=== PATIENT | female | born 1990 | race Caucasian/White ===

== ENCOUNTER 2017-12-11 16:11 | Outpatient (RCR) | payer MEDICAID, SELFPAY | END 2017-12-11 19:00 | disposition home or self-care (01) | LOC: PT 16:11 | DX: R69 Illness, unspecified (principal) ==

== ENCOUNTER 2018-02-16 16:30 | Outpatient (RCR) | payer MEDICAID, SELFPAY ==
--- NOTE | 2018-01-16 16:38 | HP.PTEVAL_ITS ---
Patient's Visit Information JESSEE QUIGLEY is a 27 year old F referred to Physical Therapy by Robert JIMENEZ with a diagnosis of Fibromyalgia. Date of Evaluation: 01/16/18 Physical Therapist: Laya Knott - Visit Plan Frequency: 2x /Week Duration: 4 Weeks Plan: Pain managment, manual therapy and scapular s/s. - Subjective Subjective: Patient reports that she has pain- found out recently that she has Fibro. She was coming to PT before because of the pain in her low back, neck and shoulders. pain in the low back sometimes but mostly in the neck and bilateral shoulders and down the right arm. She has had pain for years with insidious onset. She feels the pain is progressively getting worse. Did get better with PT but she stopped and is now worse. Pain is located in the shoulders and radiates down to the fingers. No N/T in the fingers. Patient has FREEMAN with blurred vision. Gets FREEMAN 2-3x a week- Come up over the top of her head. Describes the pain as dull and achy 'soreness. Worst: [employer]: doing a lot with her arms, after working a long shift, sleeping. Eases: massage Best : 12/23 Sleep: hard to sleep- side/stomach sleeper. Only has 15 chiro visits so she has to wait until February for them to start again- Sees [place]. 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 Lifting up to #25 lbs- not a ton of weight just constant- works 40 hours a week. PMHx: Fibromyalgia, depression, anxiety. Meds: Lexipro, BC Patch. No images recently. - Objective Posture: FH, RS, Increased kyphosis- guarding of the cervical spine and UE's. Gait: no deviation of LE but poor trunk rotation. Palpation: tender throughout upper trap, levator, medial border of the scapula, scalenes- with palpable trigger points. ROM: cervical/shoulder/elbow: WNL. Strength: Scap: fair minus with winging greater on the right than the left. Shoulder: 5/5 throughout, cervical: 5/5 throughout Elbow: 5/5 throughout. Sensation/Reflex: WNL. Special Test: distraction: no change compression: no change. - Goals Goal 1:: Patient will be I with HEP and progression Goal Time Frame: 4-6 Weeks Goal 2:: Patient will maintain proper posture t/o tx session to demo increased scap s/s. Goal Time Frame: 4-6 Weeks Goal 3:: Patient will report 5/10 pain at the worst for 1 week Goal Time Frame: 4-6 Weeks - Rehabilitation Potential Physical Therapy Diagnosis: Patient presents with hypomobility-she has increased pain and decreased scap s/s leading to poor posture. Rehabilitation Potential: Fair - Anticipated Interventions Patient/Client Instruction: Educate patient on: Benefits of Fitness Program For the Purpose of:: To improve performance and independence with ADL's Therapeutic Exercise to Include: Strength training, Endurance training, Body mechanics, Postural training, Scapular Strength/Stabilization For the Purpose of:: To improve muscle performance and motor function Manual Therapy Techniques to Include: Mobilization, Soft tissue mobilization For the Purpose of:: To decrease pain IF ES: Yes Cryotherapy (ice pack, ice massage): Yes Thermo therapy (hot pack): Yes Ultrasound (thermal/non thermal): Yes For the Purpose of:: To decrease pain Thank you for the opportunity to evaluate your patient. For Medicare and Medicare HMO plans, please review the plan of care and approve it. It will need to be FAXED BACK to us at [phone] for Medicare purposes. Please let me know if there are questions or concerns regarding this plan of care. Physician Signature: Date:
--- NOTE | 2018-04-04 09:53 | HP.PT.NRP ---
HP - Discharge Summary (1) - Patient Information JESSEE QUIGLEY was seen in my office for initial evaluation on 01/16/18. The following Plan of Care was established for this patient: Initial Frequency: 2x /Week Initial Duration: 4 Weeks - Anticipated Interventions Patient/Client Instruction: Educate patient on: Benefits of Fitness Program For the Purpose of:: To improve performance and independence with ADL's Therapeutic Exercise to Include: Strength training, Endurance training, Body mechanics, Postural training, Scapular Strength/Stabilization For the Purpose of:: To improve muscle performance and motor function Manual Therapy Techniques to Include: Mobilization, Soft tissue mobilization For the Purpose of:: To decrease pain IF ES: Yes Cryotherapy (ice pack, ice massage): Yes Thermo therapy (hot pack): Yes Ultrasound (thermal/non thermal): Yes For the Purpose of:: To decrease pain This patient was last seen in our office . Pertinent comments regarding their Physical therapy will appear below: Patient has not attended physical therapy in over 30 days and is appropriate for d/c- return to MD as needed. At this point I will be discontinuing this patient from physical therapy. I would be happy to see this patient again in the future if found appropriate by the physician. Thank you! Laya Knott
== END 2018-02-16 19:00 | disposition home or self-care (01) ==
LOC: PT 16:30
PROVIDERS: Family Provider Nurse Practitioner Family; PCP Nurse Practitioner Family; Visit Provider Nurse Practitioner Family
DX: M79.7 Fibromyalgia (principal)
CPT/HCPCS: 97035; 97110; 97113; 97140; 97161; 97530

== ENCOUNTER → 2018-11-16 16:16 | Outpatient (CLI) | payer MEDICAID, SELFPAY ==
[2018-10-22 16:20] VITALS: BMI 22.6
[2018-11-21 12:17] LABS: HPV Reflexed? NOT INDICATED
== END ==
PROVIDERS: Visit Provider Obstetrics & Gynecology
DX: Z12.4 Encounter for screening for malignant neoplasm of cervix (principal)
CPT/HCPCS: 87624; 88175; G0145

== ENCOUNTER 2019-06-01 20:32 | Emergency (ER) | payer MEDICAID, SELFPAY ==
[2019-05-09 16:39] VITALS: BMI 22.6
[2019-06-01 20:33] VITALS: BP 134/99; PULSE 68; RESP 16; TEMP 36.8; O2SAT 98; BMI 24.3
[2019-06-01] MEDS: Ondansetron 4 MG/2 ML Vial IV (21:33)
[2019-06-01 21:43] LABS: Bacteria 0 SEEN /hpf (None Seen); Red Blood Cells-Urine 0 SEEN /hpf (0-5)
[2019-06-01 21:44] LABS: Mucous, Urine 0 SEEN /hpf (<or=2+)
[2019-06-01 21:46] LABS: Absolute Neutrophil Count 3.9 X10^3/uL (2.0-7.7); Basophil# 0.03 X10^3/uL; Basophil% 0.4 % (0-1); Color, Urine Yellow (Yellow); Eosinophil# 0.05 X10^3/uL; Eosinophils% 0.7 % (0-5); Glucose, Dipstick Normal (Normal); Hematocrit 39.8 % (37-47); Hemoglobin 13.1 g/dL (12.0-15.0); Ketone-Dipstick Negative (Negative); Leukocyte Esterase-Dipstick 25 /ul (Negative); Lymphocyte % 39.9 % (19-41); Mean Corp Hgb Conc 32.9 g/dL (32-36); Mean Corpuscular Hgb 29.8 pg (27.0-32.0); Mean Corpuscular Volume 90.5 fL (81-99); Mean Platelet Vol. 9.8 fl (6.2-12.0); Monocyte# 0.55 X10^3/uL; Monocyte% 7.3 % (0-10); NRBC Flagged by Analyzer 0 % (0-5); Neutrophil # 3.86 X10^3/uL (2.7-7.7); Neutrophil % 51.3 % (47-70); Nitrite-Dipstick Negative (Negative); Occult Blood-Urine Negative /ul (Negative); Platelet Count 195 K/mm3 (150-450); Protein-Dipstick Negative (Negative); RBC Distribution Width CV 12.3 % (11.6-14.6); RBC Distribution Width SD 40.8 fl (35.1-43.9); Urine Bilirubin Dipstick Negative (Negative); Urine Clarity Clear (Clear); Urine Urobilinogen Normal (Normal); White Blood Count 7.5 K/mm3 (4.4-11.0)
[2019-06-01 21:56] LABS: Squamous Epithelial Cells - UA 10-25 SEEN /hpf (5-10); White Blood Cells 0-5 SEEN /hpf (0-5)
[2019-06-01 21:59] LABS: Anion Gap 5 (5-15); BUN 9 mg/dL (7-18); BUN/Creat Ratio 9.9 RATIO (10-20); Calcium,Total 8.4 mg/dL (8.5-10.1); Chloride 107 mmol/L (98-107); Creatinine, Serum 0.91 mg/dL (0.55-1.02); EST Glomerular Filtration Rate 79 mL/min (>60); Est Glom Filt Rate - Afr Amer 96 mL/min (>60); Glucose 98 mg/dL (74-106); Potassium 4.2 mmol/L (3.5-5.1); Sodium Level 141 mmol/L (136-145)
[2019-06-01 22:18] LABS: Internal QC Validated? YES +Cl - CLEAR BKGD; Pregnancy, Serum, hCG Quali. NEGATIVE Negative
--- NOTE | 2019-06-01 22:59 | ED.VISSUMM ---
- ER Visit Summary Date of Service: 06/01/19 Chief Complaint: Nausea History of Present Illness: The patient is a 28 F history of depression and anxiety. Patient states for the last 3-4 weekends she gets nauseated on the weekend only. Has had intermittent vomiting. No diarrhea. No fever. No dysuria. Last menstrual period was around 04/19/2019. Denies any vaginal bleeding or discharge. No abdominal pain. Physical Examination: Well-appearing young female no acute distress. Vital signs are stable and afebrile. HEENT exam unremarkable atraumatic. Pupils round react light. Neck nontender no lymphadenopathy. Lungs clear to auscultation bilaterally. Heart regular rhythm no murmur. Abdomen is soft and nontender normal bowel sounds no peritoneal signs. No right upper quadrant tenderness. Patient moving all 4 extremities. Neurovascular intact. Calves nontender without edema. Back nontender. Neurologically awake alert with no focal motor deficits. Skin normal. No rashes. Test Results: CBC showed white count 7. Hemoglobin 13. No bands. Electrolytes normal. Normal creatinine gap. UA normal. Serum test negative. Emergency Department Course and Treatment: Patient treated with IV Zofran and is showing improvement on repeat exam at 20 2:57 PM. Repeat exam otherwise unchanged. Abdomen is nontender. Treatment Plan: Zofran as needed for nausea. Fluids and rest. Follow-up. Disposition: Discharge Impression: Nausea uncertain etiology This note was generated with [employer] dictation software. It may contain incorrect words, spelling, and punctuation that were not noted in review of the chart prior to signing ED Disposition - Plan for ED Patient: Referrals: Robert Keys MD [Primary Care Provider] -
--- NOTE | 2019-06-01 23:01 | ED.DEP ---
ED Disposition - Plan for ED Patient: Disposition: Home or Assisted Living Instructions: VOMITING (8y-Adult) Prescriptions: Ondansetron [Zofran Odt] 4 mg PO Q8H PRN PRN #10 tab PRN Reason: Nausea Prescription Printed Referrals: Robert Keys MD [Primary Care Provider] - 3-5 Days if not improving Additional Instructions: Plenty of fluids and rest. Zofran as needed for nausea. Follow-up with your doctor if not improving.
[2019-06-01 23:03] VITALS: BP 113/76; PULSE 59; RESP 15
[2019-06-01] MEDS: Ondansetron ODT 4 MG Tablet 8 MG PO (23:07)
== END 2019-06-01 23:11 | disposition home or self-care (01) ==
PROVIDERS: Emergency Provider Emergency Medicine
DX: R11.0 Nausea (principal); F32.9 Major depressive disorder, single episode, unspecified; F41.9 Anxiety disorder, unspecified; Z79.899 Other long term (current) drug therapy
CPT/HCPCS: 80048; 81001; 84703; 85025; 96374; 99283; A4216; J2405

== ENCOUNTER → 2019-11-20 16:34 | Outpatient (CLI) | payer MEDICAID, SELFPAY ==
[2019-11-11 16:29] VITALS: BMI 24.2
--- NOTE | 2019-11-20 16:47 | RAD_ITS ---
STUDY: X-RAY - CERVICAL SPINE REASON FOR EXAM: Female, 29 years old. patient complains of neck pain TECHNIQUE: 7 view(s) of the cervical spine were obtained. COMPARISON: None FINDINGS: Normal anterior atlantoaxial articulation. Normal odontoid process. There is straightening of the normal cervical lordosis. No subluxation on flexion, extension or neutral views. Normal vertebral bodies and endplates. Normal disc space heights. Normal visualized intervertebral neuroforamina. The soft tissue structures are unremarkable. RAD/Cerv Spine Obl/Flex/Ext Comp IMPRESSION: No degenerative disc space disease or foraminal narrowing. Straightening of the normal cervical lordosis may be positional artifact or related to muscular spasm. Electronically Signed: Zhen Oreilly MD (Bro[place]) at 13:02 EST , Service support ,
== END ==
DX: M54.2 Cervicalgia (principal)
CPT/HCPCS: 72052

== ENCOUNTER → 2019-12-20 16:23 | Outpatient (CLI) | payer MEDICAID, SELFPAY ==
[2019-11-11 16:29] VITALS: BMI 24.2
--- NOTE | 2019-12-20 16:30 | RAD_ITS ---
STUDY: X-RAY - LUMBAR SPINE REASON FOR EXAM: Female, 29 years old. Pain across lower back down both legs with numbness and tingling for about 3-4 months now. No known injury. TECHNIQUE: 5 view(s) of the lumbar spine were obtained. COMPARISON: March 02, 2017 FINDINGS: Normal lumbar lordosis. There is no substantial scoliosis. There is a normal alignment of the vertebrae. Normal vertebral bodies and endplates. Normal disc space heights. The soft tissue structures are unremarkable. RAD/L/S Spine Min 4 Views IMPRESSION: Normal x-ray examination of the lumbar spine. Electronically Signed: Caity Chris MD at 8:03 EST Tel , Service support ,
== END ==
DX: M54.40 Lumbago with sciatica, unspecified side (principal)
CPT/HCPCS: 72110

== ENCOUNTER → 2020-01-24 10:26 | Outpatient (CLI) | payer MEDICAID, SELFPAY ==
[2019-11-11 16:29] VITALS: BMI 24.2
--- NOTE | 2020-01-24 10:30 | NM_ITS ---
CLINICAL: Female, 29 years old. ruq pain -- gallstones with obstruction of gallbladder -- ultrasound done elsewhere showed stones -- pain radiates to the back NUCLEAR BILIARY SCAN TECHNIQUE: Following the intravenous administration of 5.4 mCi of Tc Mebrofenin, hepatobiliary images was performed. COMPARISON STUDIES : NM - None. CR - Not available for review at this time. CT - Not available for review at this time. MR - Not available for review at this time. US - Not available for review at this time. FINDINGS: Relatively prompt and homogeneous radiopharmaceutical concentration is noted by a normal sized liver. There are no parenchymal defects noted.. Gallbladder activity is identified at 45 minutes post radiopharmaceutical administration. Small bowel activity is identified at 30 minutes post radiopharmaceutical administration. Washout of the radiopharmaceutical by the hepatic parenchyma occurs in a normal fashion on qualitative inspection. NM/Hepatobilliary Imaging IMPRESSION: Normal 99m TC Mebrofenin hepatobiliary imaging survey. Electronically Signed: Rogelio Bowden MD at 13:00 EDT , Service support ,
== END ==
PROVIDERS: PCP Nurse Practitioner Family; Referring Provider Nurse Practitioner Family; Visit Provider Nurse Practitioner Family
DX: R10.11 Right upper quadrant pain (principal); K80.21 Calculus of gallbladder without cholecystitis with obstruction
CPT/HCPCS: 78226; A9537

== ENCOUNTER 2020-02-19 16:00 | Outpatient (RCR) | payer MEDICAID, SELFPAY ==
[2019-11-11 16:29] VITALS: BMI 24.2
--- NOTE | 2020-01-20 10:49 | HP.PTEVAL_ITS ---
Patient's Visit Information JESSEE QUIGLEY is a 29 year old F referred to Physical Therapy by MARK Ocampo with a diagnosis of Lumbago with sciatica. Date of Evaluation: 01/16/20 Physical Therapist: Calin Galicia DPT - Visit Plan Frequency: 2x /Week Duration: 4-6 Weeks Plan: Start with US/IFC to lumbar spine. Neutral spine core stability exercises withtout increase in symptoms. POstural education to maintain neutral spine with activities. - Subjective Subjective: Pt. is here today for her initial evaluation with diagnosis of lumbago with sciatica. Pt. reports having pain for 8+ months progressively getting worse without mech of injury. Pt. has been going to chiro with a couple of days relief, but not lasting. Pt. reports having pain in lumbar spine 4/10 constantly worse with prolonged sitting or standing. Pt. has pain that radiates down her legs to B feet, R worse then L. No N/T, no LE weakness. Pt. has had back pain in general previously, but not like this. 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 Pt. reports no recent changes in symptoms. Pt. is hopefyl to reduce symptoms to get back to all recreational and work activities without pain. - Pain Lumbar spine Pain Intensity (Out of 10): 4 Pain Intensity Range: 2, 8 RLE Pain Intensity (Out of 10): 4 Pain Intensity Range: 2, 8 LLE Pain Intensity (Out of 10): 2 Pain Intensity Range: 1, 6 - Objective POSTURE: Pt. has generally flexed posture, able to improve with VCIng. PALPATON: Pt. has pain with pal of B lumbar erector spine, B SI joints, No pain with palpation of BLEs. NEURO: normal throughout. ROM: LUMBAR SPINE: flexion min loss increase nW, extension min loss increase nW, sB nil loss NE Bilat, rotation nil loss NE bilat. Pt. has tright HS and hip flexors, but no pain. Normal hip ROM. MMT: 4+/5t throughout generally of BLEs, core- poor+. GAIT: Pt. has normal gait pattern, flexed posture, minimal postural sway. STAIRS: Pt. uses BHR without issues. - Special Tests L/S Slump test left side: Negative L/S Slump test right side: Negative L/S Left Straight Leg Raise: Negative L/S Right Straight Leg Raise: Negative L/S Instability PA Test: Negative L/S Prone Instability Test: Positive - Goals Goal 1:: Pt. to be I with HEP. Goal Time Frame: 4-6 Weeks Goal 2:: Pt. to have full lumbar ROM without increase in symptoms. Goal Time Frame: 4-6 Weeks Goal 3:: Pt. to complete all job activities without increase in symptoms. Goal Time Frame: 4-6 Weeks Goal 4:: Pt. to have increased core strength by 1/2 grade throughout. Goal Time Frame: 4-6 Weeks Goal 5:: Pt. to sleep throughout the night wihtout increase in symptoms. Goal Time Frame: 4-6 Weeks - Rehabilitation Potential Physical Therapy Diagnosis: Pt. has signs and symptoms consistent with lumbago with sciatica. Pt. did not have + testing for disc involvement, - slump and - SLR. Pt. also did not present with a directional preference this date. She does have reduced core stability and difficulty maintaining neutral spine against external resistance. Pt. does have fibromyalsia as a secondary dx. Pt. would benefit from PT to reduce symptoms and promote graded exercises. Rehabilitation Potential: Good - Anticipated Interventions Patient/Client Instruction: Educate patient on: Condition, Plan of Care, Risk Factors, Benefits of Fitness Program For the Purpose of:: To improve health and function, To foster healthy habits, To improve decision making, To facilitate caregiver knowledge, To improve self management, To prevent re-injury, To improve ability to perform tasks related to life management, To improve tolerance to ADL's Therapeutic Exercise to Include: Strength training, Power training, Body mechanics, Postural training, Flexibilty training, Passive ROM, Active ROM, Dynamic Lumbar Stabilization, Sarah Exercises For the Purpose of:: To decrease pain, To decrease swelling/inflammation, To increase ROM, To improve nutrient delivery to tissue, To increase oxygenation perfusion, To improve muscle performance and motor function, To decrease level of supervision to perform tasks, To improve ability of physical actions for home/community/work/leisure, To improve health of tissue, To decrease soft tissue restriction, To increase flexibility/ROM Manual Therapy Techniques to Include: Mobilization, Functional dry needling, Soft tissue mobilization For the Purpose of:: To decrease pain, To decrease swelling/inflammation, To increase ROM, To improve nutrient delivery to tissue, To increase oxygenation perfusion, To improve muscle performance and motor function, To improve health of tissue, To decrease soft tissue restriction TENS: Yes IF ES: Yes Ultrasound (thermal/non thermal): Yes For the Purpose of:: To decrease pain, To increase ROM, To improve nutrient delivery to tissue, To increase oxygenation perfusion, To improve muscle performance and motor function Thank you for the opportunity to evaluate your patient. For Medicare and Medicare HMO plans, please review the plan of care and approve it. It will need to be FAXED BACK to us at [phone] for Medicare purposes. For Medicare only, by signing this I certify the plan of care. Please let me know if there are questions or concerns regarding this plan of car e. Physician Signature: Date:
--- NOTE | 2020-02-20 07:55 | HP.PTDCSUM ---
It has been my pleasure to treat JESSEE QUIGLEY referred by MARK Ocampo, with the diagnosis of Lumbago with sciatica for a total of 10 visit(s). Discharge Date: 02/19/20 Please see the following information for a summary of their discharge status. Subjective: Pt. reports nothing is really helping the pain. She reports having some relief with extension one day, but everyother attempt with extension has caused increased symptoms. Pt. reprots pain in her upper back at times, low back constantly and lateral hips ~50% of the time. Pt. reports being HEP compliant. Lumbar spine Pain Intensity (Out of 10): 6 RLE Pain Intensity (Out of 10): 0 LLE Pain Intensity (Out of 10): 0 B hips Pain Intensity (Out of 10): 3 % Improvement: 20 Objective/Function: ROM: Lumbar spine: pt. had full ROM this date of her lumbar spine, but did have increased pain wtih flexion and with R SB and R rotation. Pt. has increased pain with prone lying and prone prop. MMT: Pt. has 5/5 strength of her BLEs, except hip flexion 4+/5, hip abd 4+/5, and hip ext 4+/5. Core strength is fair-. Pt. has difficulty with maintaining proper pelvic tilt against weight of LEs and worse against over pressure. GAIT: Pt tends to walk with anterior pelvic tilt positining. STAIRS: Pt. is able to complete without LOB or issues. pt. uses 1 HR to complete. Goal 1:: Pt. to be I with HEP. Goal Progress: Goal Met Goal 2:: Pt. to have full lumbar ROM without increase in symptoms. Goal Progress: Progressing Goal 3:: Pt. to complete all job activities without increase in symptoms. Goal Progress: Not Progressing Goal 4:: Pt. to have increased core strength by 1/2 grade throughout. Goal Progress: Progressing Goal 5:: Pt. to sleep throughout the night wihtout increase in symptoms. Goal Progress: Not Progressing Plan: Pt. to be DC to HEP and back to physician for further testing. Pt. had minimal gains with PT at this point in time. Discharge Comments: Pt. was seen for her low back pain, sciatica. We tried some directional preference with extension, but did not have consistent relief. She does have a hard time maintaining proper pelvic stability and especially against resistances. I have given her exercises to work on isometric core stability exercises at this point in time. She just has not responded like I would have expected. I will Dc her back to physician at this point in time. If there are questions or concerns regarding this patient's physical therapy, please feel free to call me at [phone]. Thank you for the referral of this patient. Sincerely, FERNANDO MoniqueT
== END 2020-02-19 19:00 | disposition home or self-care (01) ==
LOC: PT 16:00
PROVIDERS: Referring Provider Nurse Practitioner Family; Visit Provider Nurse Practitioner Family
DX: M54.40 Lumbago with sciatica, unspecified side (principal)
CPT/HCPCS: 97035; 97110; 97140; 97161; 97164

== ENCOUNTER → 2020-03-04 13:51 | Outpatient (CLI) | payer MEDICAID, SELFPAY ==
[2020-03-04 13:12] VITALS: BMI 24.2
[2020-03-04 15:00] LABS: AST(SGOT) 32 U/L (15-37); Alanine Aminotransfer ALT/SGPT 40 U/L (13-56); Albumin, Serum 3.9 g/dL (3.2-5.0); Alkaline Phosphatase 79 U/L (45-117); Bilirubin, Direct 0.12 mg/dL (0.00-0.30); Globulin 3.5 g/dL (2.2-4.2); Protein, Total 7.4 g/dL (6.4-8.2)
== END ==
PROVIDERS: PCP Nurse Practitioner Family; Referring Provider Surgery; Visit Provider Surgery
DX: K80.20 Calculus of gallbladder without cholecystitis without obstruction (principal)
CPT/HCPCS: 36415; 80076

== ENCOUNTER 2020-03-13 10:35 | Day surgery (SDC) | payer MEDICAID, SELFPAY ==
--- NOTE | 2020-03-04 01:57 | HP_ITS ---
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 Ashley Rivas MD) Smoking Status: Current every day smoker alcohol intake: never substance use type: does not use what type of physical activity do you participate in: none HPI HPI HPI: JESSEE QUIGLEY, is a 29 F who presents to the office today for HPI HPI Surgical H&P: Yes HPI: JESSEE QUIGLEY, is a 29 F who presents to the office today for cholelithiasis. Patient had an ultrasound report shows gallstones/sludge, gallbladder wall 2 mm, common bile duct 3 mm no pericholecystic fluid. Patient states she is had right upper quadrant pain for a few years however it is more often now about daily and also increase in severity occasionally. Patient notices that she can get it when he after she eats about 1 to 2 hours. Patient states she has had some issues with constipation recently she did have some bright red blood when she wiped after hard stool on Monday. She normally goes about every 3 days she has not think she has any hemorrhoids denies having a lot of fiber in her diet or drinking a lot of water. Patient also has been having some right lower quadrant pain/groin off and on does not believe it is associated with food it can be associated with movement will be sharp for about 10 minutes and she will rest and will improve over the next 10 to 15 minutes. Patient did have a pelvic ultrasound which report was some ovarian follicles otherwise negative. Exam Const General: cooperative, no acute distress, well developed Resp Effort & Inspection: normal respiratory effort Cardio Rate: regular rate GI Inspection: non-distended Palpation: soft, no guarding, nontender Other: No obvious inguinal hernia on the right. Neuro Cranial Nerves: CN's II-XI intact bilaterally Extrem General: no clubbing, cyanosis or edema Psych Affect: normal affect Assessment & Plan Problems 1. Cholelithiasis K80.20 Plan Will have patient get LFTs. Recommend avoiding any fatty or greasy foods until surgery Reviewed the anatomy with the patient and discussed the procedure: laparoscopic cholecystectomy with cholangiograms, possible open. Review risks including but not limited to bleeding, infection, hernia, bile leak, retained gallstones requiring another procedure ERCP- Endoscopic Retrograde Cholangiopancreatography, injury to another organ (bile ducts, common bile duct, small bowel, etc.) may require transfer to tertiary care facility and conversion to an open procedure. All questions were answered. Also plan to look in the lower abdomen during the procedure for any possible hernias none obvious on exam. Procedure: Elective We discussed the current risks associated with COVID-19. While it is understood that there is a community spread of COVID-19, the risk of violetta COVID-19 while at [facility] ([facility]) is very low; however, the risk cannot be completely mitigated because of the community spread of the disease. We discussed in detail the risk of exposure to and/or potential harm posed by the COVID-19 virus with having a surgery/procedure at this time versus the risk of delaying the surgery/procedure. It is not possible to know either the risk of delaying the surgery or procedure or chance of getting an infection with perfect accuracy, but a joint decision was made to proceed at this time with the scheduled surgery/procedure as indicated on the consent form. Patient was notified that we will need to comply with any screening or testing [facility] wishes to perform or that surgery may be delayed for any positive results. Ashley Rivas M.D. Pager: [phone] [facility] [address] [place] [address], [address] [place] [address] Office: [phone] Orders Orders: Liver Profile Today K80.20 Plan Detail Goals Decrease pain Increase ability to sit for prolonged periods Decrease FREEMAN's Barriers Repetitive work Follow Up We will schedule lap rebecca Coding Level of Care Code Off vis,new,level 3 Diagnoses Cholelithiasis K80.20 03/04/20 1357 <Electronically signed by Ashley Pimentel am, MD> Date _ Ashley Rivas MD I have examined the patient the following changes are noted: Patient stated LFTs were within normal range, patient still been having some right upper quadrant and right lower quadrant pain they not occur at the same time.
[2020-03-04 13:12] VITALS: BMI 24.2
[2020-03-13] VITALS (12 sets, daily range): BP systolic 100–123; BP diastolic 55–75; PULSE 56–73; RESP 16–18; TEMP 36.3–37.1; O2SAT 92–100; BMI 26.2
[2020-03-13 11:07] LABS: Internal QC Validated? YES +Cl - CLEAR BKGD
[2020-03-13 11:08] LABS: Pregnancy, Urine Negative Negative
[2020-03-13] MEDS: Lactated Ringers 1,000 ML 100 ML IV ×2 (11:14→14:25)
--- NOTE | 2020-03-13 12:05 | RAD_ITS ---
STUDY: INTRAOPERATIVE CHOLANGIOGRAM. REASON FOR EXAM: Female, 29 years old. PAIN. 4.5 SEC. FL, 1 IMAGE FLUOROSCOPY TIME (if supplied): ( 4.5 seconds ) minutes/seconds TECHNIQUE: An intraoperative Intra Cholangiogram was performed by the surgeon. A single image was submitted for interpretation. COMPARISON: None. FINDINGS: The visualized intrahepatic biliary ducts are unremarkable. The common bile duct is not dilated. No intraluminal filling defect is seen. There is free flow of contrast into the duodenum. RAD/Cholangiogram/ O R,Initial IMPRESSION: Unremarkable Intra- operative cholangiogram. Electronically Signed: Nando Barnett, at 14:03 EDT , Service support ,
--- NOTE | 2020-03-13 12:05 | GALL_PTH ---
PATIENT: JESSEE QUIGLEY LOC: [facility] – [place] U#:[id number] AGE/SX: 29/F ROOM: RE03/13/[address]: Dr. Ashley Rivas MD : 1990 BED: DIS: 03/13/2020 SPEC #: [id number] RECD: 03/16/20 10:03 STATUS: MADELIN ERROL #: [id number] DELVIN: 03/13/20 12:[address]: Ashley Rivas DEPT: SURGICAL PATHOLOGY RECD BY: Shane Norton ENTERED: 03/16/20 11:17 SP TYPE: ELY BOWSER DR: Robert Wong, ACCESS REPRESENTATIVE-Glynn Tissues: Gallbladder, NOS Procedures: Surgery Specimen Level III HEADER OPERATION: Laparoscopic cholecystectomy with IOC PRE-OP DIAGNOSIS: Cholelithiasis TISSUE SUBMITTED: Gallbladder MICROSCOPIC DIAGNOSIS Gallbladder, cholecystectomy: Mild chronic cholecystitis and cholelithiasis. SJ:severo 6/2/20 MICROSCOPIC DESCRIPTION Slides are reviewed. GROSS DESCRIPTION Received is one container labeled with the patient's name and designated gallbladder. The specimen consists of a gallbladder measuring 8.8 x 3.2 x 3 cm. The external surface is smooth and glistening. Focally, it is granular, hemorrhagic and contains cautery artifact. The lumen of the gallbladder contains yellow-green mucoid bile and sludge and multiple minute black calculi ranging in size from <0.1 to 0.1 cm. The mucosa is bile-stained and without any mass lesions. The gallbladder wall averages 0.2 cm in thickness and is free of mass lesions. Truss Builder sections of the gallbladder and the cystic duct at margin of resection are submitted in one cassette. / AM:severo 03/16/20 TC:3 CPT: 05694
--- NOTE | 2020-03-13 12:08 | EKG12_ITS ---
Test Reason : PRE-OP Blood Pressure : / mmHG Vent. Rate : 065 BPM Atrial Rate : 065 BPM P-R Int : 128 ms QRS Dur : 094 ms QT Int : 380 ms P-R-T Axes : 070 -11 052 degrees QTc Int : 395 ms Normal sinus rhythm Normal ECG No previous ECGs available Confirmed by MARIANELA BURROUGHS, KURT ([id number]), editor publications ROLY SANCHEZ ([id number]) on 03/17/2020 2:01:29 PM Referred By: Ashley Rivas Confirmed By:KURT BEAR MD
[2020-03-13] MEDS: Cefazolin 2 GM in 0.9% Normal Saline 100 ML IV (12:26)
[2020-03-13] MEDS: Bupivacaine Mpf 0.5% 30 ML VIAL (12:45)
--- NOTE | 2020-03-13 13:31 | PCM.OPRPT ---
Report of Operation Date of Procedure: 03/13/20 Pre-Operative Diagnosis: cholelithiasis, RUQ pain Post-Operative Diagnosis: Same Surgery/Procedure Performed:: Laparoscopic cholecystectomy with cholangiograms flying squad salesperson: Emelia Rebolledo Type of Anesthesia:: General/Supplemental Anesthesiologist: Joaquin El Special Medications: Ancef 2 g IV x1 Specimen's removed: Gallbladder Estimated Blood Loss (mL): < 10 cc Fluids Replaced: 700 cc Description of Procedure: Indications this is a 29 year-old female who developed abdominal pain/nausea/vomiting and on workup was found to have cholelithiasis, with a normal common bile duct. Laparoscopic cholecystectomy was elected. Description procedure: The patient was placed on operating table in supine position. General Anesthesia was induced. A timeout was completed verifying correct patient, procedure, site, position and special equipment prior to beginning procedure. The abdomen was prepped and draped in usual sterile fashion. An incision was made in the natural skin line below the umbilicus. The fascia was elevated and incised. The peritoneum was elevated and incised. Entry into the peritoneum was confirmed visually and no bowel was noted in the vicinity of the incision. Wilson trocar was placed. The abdomen was insufflated with carbon dioxide to a pressure of 12-15 mmHg. Patient tolerated insufflation well. The laparoscope was then inserted and abdomen inspected. No injuries from initial trocar placement were noted. Additional trochars were then inserted in the following locations 5 mm trocar in the epigastrium and 2 more 5 mm trochars along the right costal margin. The abdomen was inspected no abnormalities were found, there is no noted inguinal hernias present, ovaries appeared normal, appendix was normal. The table is placed in reverse Trendelenburg position with the right side up. The adhesions between the gallbladder and omentum were lysed sharply. The dome of the gallbladder was grasped with atraumatic grasper passed through the lateral port and retracted over the dome of the liver. Infundibulum was then grasped with atraumatic grasper through the midclavicular port and retracted to the right lower quadrant. This maneuver exposed Calot's triangle. The peritoneum overlying the gallbladder infundibulum was then incised and cystic duct and artery identified and circumferentially dissected. Russell catheter was used for cholangiograms. The cholangiogram showed good filling of the common bile duct into the duodenum with no filling defects, good filling of the right and left bile ducts as well. The cystic duct and artery were then doubly clipped and divided close to the gallbladder. The gallbladder then dissected from its peritoneal attachments by electrocautery. Hemostasis was checked and the gallbladder and contained stones were removed using the endoscopic retrieval bag through the umbilical port. The gallbladder is passed off table as specimen. The gallbladder fossa was copiously irrigated with saline and hemostasis obtained. There is no evidence of bleeding from the gallbladder fossa or cystic artery leakage of bile from the cystic duct stump. Secondary trochars removed under direct vision. No bleeding was noted the trocar sites. The laparoscope was withdrawn and umbilical trocar removed. The abdomen was allowed to collapse. The fascia of the 12 mm trocar was closed with a [id number] 0 Vicryl suture. The skin was closed with sutures of 4-0 Monocryl and Steri-Strips. The orogastric tube was removed and the patient was extubated. The patient tolerated procedure well and was taken to the postanesthesia care unit in stable condition. - Complications none
--- NOTE | 2020-03-13 13:34 | DCINST_ITS ---
Discharge Diet: Light diet - advance as tolerated Discharge Activity: May not drive while taking narcotic pain medications. May shower in (days): 1 Lifting Restrictions: no lifting > 20 lbs x 2 wks, no strenous exercise for 5 wks Call your doctor if your incision/area has: Continuous Slow Oozing, Sudden Increased Bleeding, Increased Pain/ Swelling, Increased Redness, Foul Smelling Discharge, Swelling at the incision site Call your doctor if you observe: Fever of 101 or Higher Remove Dressing in (days):: 1 - Okay to remove op sites tomorrow, Steri-Strips will stay on for 7 to 10 days if they do not fall off in 10 days okay to remove Additional Instructions: Okay to take ibuprofen 400-600 mg PO q6hr PRN along with the Percocet. Avoid Tylenol since there is already Tylenol in the Percocet. Take all pain meds with food. Percocet can cause constipation recommend taking daily stool softener (i.e. Colace/docusate 100 mg p.o. can take twice daily or daily) while taking the pain meds. Recommend starting some MiraLAX tomorrow if no bowel movement. If still no bowel movement the following day recommend taking magnesium citrate half the bottle and waiting 4-6 hours if still no results take the other half the bottle. Allergies/Adverse Reactions: Allergies No Known Allergies Allergy (Verified 03/13/20 10:48) Medications to take at Discharge Multivitamin with Minerals [Multiple Vitamin] 1 ea PO DAILY 03/11/20 Oxycodone HCl/Acetaminophen [Percocet 5/325] 1 - 2 tab PO Q6H PRN PRN 5 Days #25 tab 03/13/20 The following prescriptions were given: Oxycodone HCl/Acetaminophen [Percocet 5/325] 1 - 2 tab PO Q6H PRN PRN 5 Days #25 tab PRN Reason: Pain Transmission Status: Received by [id number] Primary Care Physician: Robert Wong NP-C [Primary Care Provider] - Test Results: Test results from this visit will be discussed in further detail at your follow- up appointment, if applicable. Please Follow Up With: Ashley Rivas MD - After 5 PM and on the weekends call [phone] with any concerns When: Call the office for a follow-up appt in 2 wks may be phone or virtual Proposed Discharge Date: 03/13/20
== END 2020-03-13 17:07 | disposition home or self-care (01) ==
LOC: SDC 10:37 → AC 10:47
PROVIDERS: Anesthesiology; PCP Nurse Practitioner Family; Referring Provider Surgery; Visit Provider Surgery
PROC: (CPT 47610; principal; 2020-03-13 11:45)
DX: K80.10 Calculus of gallbladder with chronic cholecystitis without obstruction (principal); M79.7 Fibromyalgia; F17.200 Nicotine dependence, unspecified, uncomplicated; Z11.59 Encounter for screening for other viral diseases
CPT/HCPCS: 47563; 74300; 76000; 81025; 87635; 88304; 93005; G2023; J7120; J2405; U0004

== ENCOUNTER → 2020-03-26 | Outpatient (CLI) | payer MEDICAID, SELFPAY ==
[2020-03-13 10:58] VITALS: BMI 26.2
[2020-03-26 11:08] LABS: Vitamin D,25 Hydroxy 24.5 ng/mL
[2020-03-26 11:11] LABS: Estradiol 57.9 pg/mL; Follicle Stimulating Hormone 9.6 mIU/mL; Free T3 2.9 pg/mL (2.18-3.98); Prolactin 8.8 ng/mL; T4 Free Direct 0.98 ng/dL (0.76-1.46)
[2020-03-27 06:07] LABS: DHEA Sulfate 64.6 ug/dL (84.8-378.0)
== END | disposition home or self-care (01) ==
LOC: WOBLAB 09:17
PROVIDERS: PCP Nurse Practitioner Family; Visit Provider Obstetrics & Gynecology
DX: E28.8 Other ovarian dysfunction (principal)
CPT/HCPCS: 36415; 82306; 82533; 82627; 82670; 83001; 83498; 84146; 84270; 84403; 84439; 84443; 84481; 82626

== ENCOUNTER → 2020-05-11 10:32 | Outpatient (CLI) | payer MEDICAID, SELFPAY ==
[2020-04-27 15:01] VITALS: BMI 26.2
[2020-05-11 10:58] LABS: Hematocrit 40.9 % (37-47); Hemoglobin 13.2 g/dL (12.0-15.0); Mean Corp Hgb Conc 32.3 g/dL (32-36); Mean Corpuscular Hgb 29.3 pg (27.0-32.0); Mean Corpuscular Volume 90.9 fL (81-99); Mean Platelet Vol. 10.1 fl (6.2-12.0); Platelet Count 213 K/mm3 (150-450); RBC Distribution Width CV 12.4 % (11.6-14.6); RBC Distribution Width SD 40.9 fl (35.1-43.9); White Blood Count 4.9 K/mm3 (4.4-11.0)
[2020-05-11 11:55] LABS: Progesterone Level 0.28 ng/mL (See Comment)
== END ==
PROVIDERS: PCP Nurse Practitioner Family; Visit Provider Obstetrics & Gynecology
DX: E28.9 Ovarian dysfunction, unspecified (principal); N94.3 Premenstrual tension syndrome
CPT/HCPCS: 36415; 84144; 85027

== ENCOUNTER → 2020-05-18 09:30 | Outpatient (CLI) | payer MEDICAID, SELFPAY ==
[2020-04-27 15:01] VITALS: BMI 26.2
[2020-05-11 15:14] VITALS: BMI 26.2
--- NOTE | 2020-05-18 09:33 | MRI_ITS ---
STUDY: MRI LUMBAR SPINE WITHOUT CONTRAST REASON FOR EXAM: Female, 29 years old. ddd,radiculopathy,pain low back , bilat hips/legs rt and gt; lt TECHNIQUE: Standardized fat and water weighted pulse sequences were obtained in the sagittal and axial planes. COMPARISON: X-ray dated 12/20/2019 FINDINGS: T12-L1: Normal endplates. Normal disc height, hydration and morphology. Normal bilateral facet joints. Normal central canal and bilateral lateral recesses. Normal bilateral intervertebral neural foramina. Normal lumbar lordosis. There is no substantial scoliosis. L1-2: Normal endplates. Normal disc height, hydration and morphology. Normal bilateral facet joints. Normal central canal and bilateral lateral recesses. Normal bilateral intervertebral neural foramina. L2-3: Normal endplates. Normal disc height, hydration and morphology. Normal bilateral facet joints. Normal central canal and bilateral lateral recesses. Normal bilateral intervertebral neural foramina. L3-4: Normal endplates. Normal disc height, hydration and morphology. Normal bilateral facet joints. Normal central canal and bilateral lateral recesses. Normal bilateral intervertebral neural foramina. L4-5: Normal endplates. Normal disc height, hydration and morphology. Normal bilateral facet joints. Normal central canal and bilateral lateral recesses. Normal bilateral intervertebral neural foramina. L5-S1: Normal endplates. Normal disc height, hydration and morphology. Normal bilateral facet joints. Normal central canal and bilateral lateral recesses. Normal bilateral intervertebral neural foramina. Normal visualized sacral ala. MRI/Spine Lumbar (Routine) IMPRESSION: Unremarkable unenhanced MR examination of the lumbar spine. Electronically Signed: Caity Chris MD at 10:02 EDT Tel , Service support ,
== END ==
PROVIDERS: PCP Nurse Practitioner Family; Referring Provider Nurse Practitioner Family; Visit Provider Nurse Practitioner Family
DX: M51.37 Other intervertebral disc degeneration, lumbosacral region (principal); M54.16 Radiculopathy, lumbar region; M54.9 Dorsalgia, unspecified
CPT/HCPCS: 72148

== ENCOUNTER → 2020-07-15 10:12 | Outpatient (CLI) | payer MEDICAID, SELFPAY ==
[2020-06-29 11:45] VITALS: BMI 26.2
--- NOTE | 2020-07-15 10:14 | NM_ITS ---
CLINICAL: 29-year-old female with reported history of low back discomfort and radicular pain. WHOLE BODY 99m Tc MDP RADIONUCLIDE BONE SCINTIGRAPHY COMPARISON: MRI of the lumbar spine report 05/18/2020 FINDINGS: Following the intravenous administration of approximately 25.0 mCi of 99m Tc MDP, whole body bone images reveal: 1. Mild increased radiopharmaceutical concentration is defined in the bilateral knees and shoulders, the right elbow. 2. The remaining skeletal structures are scintigraphically unremarkable with normal-appearing renal images and urinary bladder activity identified. NM/Bone Scan Whole Body IMPRESSION: 1. The increase in radiopharmaceutical concentration visualized in the right and left shoulders, bilateral knees and right elbow likely represent a component of early onset degenerative arthrosis or potentially low-grade synovial inflammation, in the appropriate clinical context. 2. There is no definitive typical scintigraphic evidence of trauma-fracture involving the visualized thoracic and lumbar spine-sacrum. Electronically Signed: Robert Morrow DO at 23:02 EDT Tel , Service support ,
== END ==
PROVIDERS: PCP Nurse Practitioner Family; Referring Provider Nurse Practitioner Family; Visit Provider Nurse Practitioner Family
DX: M54.40 Lumbago with sciatica, unspecified side (principal)
CPT/HCPCS: 78306

== ENCOUNTER 2020-07-20 09:51 | Day surgery (SDC) | payer MEDICAID, SELFPAY ==
[2020-06-29 11:45] VITALS: BMI 26.2
[2020-07-20] VITALS (7 sets, daily range): BP systolic 100–113; BP diastolic 51–76; PULSE 59–65; RESP 16–18; TEMP 36.6–37.3; O2SAT 96–98; BMI 26.4
[2020-07-20 10:23] LABS: Internal QC Validated? YES +Cl - CLEAR BKGD; Pregnancy, Urine Negative Negative
[2020-07-20] MEDS: Lactated Ringers 1,000 ML 100 ML IV (10:27)
--- NOTE | 2020-07-20 10:39 | RAD_ITS ---
CLINICAL HISTORY: Female, 29 years old. Lower back pain PROCEDURE: BLOCK, GANGLION IMPAR FLUOROSCOPY TIME (if supplied): (0:23) minutes. 2 Images. TECHNIQUE: There is a needle projecting over the sacrococcygeal junction. RAD/Fluor Guidance for Spine Inj IMPRESSION: Successful pain block.. Electronically Signed: Katie Bailey, at 14:00 EDT Tel , Service support ,
[2020-07-20] MEDS: MethylPREDNISolone Acetate 80 MG/ML Vial (10:47)
[2020-07-20] MEDS: Bupivacaine 0.25% 30 ML Vial (10:48)
--- NOTE | 2020-07-20 17:13 | OP.PCM_ITS ---
Report of Operation Date of Procedure: 07/20/20 Description of Surgical Findings:: PREOPERATIVE DIAGNOSIS: Coccydynia. POSTOPERATIVE DIAGNOSIS: Coccydynia. PROCEDURE PERFORMED: Inferior hypogastric ganglion steroid injection (ganglion impar steroid injection) under fluoroscopy guidance. ANESTHESIA: MAC. BLOOD LOSS: Minimal. COMPLICATIONS: None. DESCRIPTION OF PROCEDURE: History and physical of today was reviewed. Risks and benefits of the procedure were explained. The patient understood and agreed to proceed. Informed consent was obtained. IV inserted per routine protocol. The patient was taken to the operating room and placed in the prone position with a pillow positioned underneath the abdomen. The lower back and tailbone area was prepped and draped in a sterile fashion using iodine x3. Under fluoro scopy guidance on lateral view, the caudal space was identified. The skin and subcutaneous tissue was anesthetized with approximately 3 mL of 1% lidocaine using a 25-gauge regular needle. Under direct visualization with fluoroscopy on a lateral view, using a 22-gauge 3-1/2-inch spinal needle, the needle was passed through the skin. The tip of the needle was maneuvered and directed towards the sacrococcygeal ligament. The needle was passed through the sacrococcygeal ligament and advanced anterior through the sacrococcygeal membrane anterior to the sacrum. After negative aspiration for blood, a total of 2 mL of contrast was injected to confirm correct placement of the needle as well as anterior spread through the sacrum and coccyx on lateral view. After repeated negative aspiration and confirmation on lateral as well as AP view, a total of 10 mL of preservative-free 0.125% Marcaine with 40 mg of Depo-Medrol was injected. The needle was then removed intact. The patient experienced no sign or symptoms of intrathecal or intravascular injection. The patient experienced no paresthesia. The procedure was completed without any apparent difficulty or any complications. The patient appeared to tolerate it well. ASSESSMENT AND PLAN: This is a 29-year-old female with coccydynia, status post inferior hypogastric (ganglion impar) steroid injection under fluoroscopy guidance. The patient will continue her current medications. The patient will follow up in approximately 2 weeks for reevaluation.
== END 2020-07-20 11:37 | disposition home or self-care (01) ==
LOC: SDC 09:51 → AC 09:54
PROVIDERS: Anesthesiology; PCP Nurse Practitioner Family; Referring Provider Anesthesiology Pain Medicine; Visit Provider Anesthesiology Pain Medicine
PROC: 3E0T3BZ Introduction of Anesthetic Agent into Peripheral Nerves and Plexi, Percutaneous Approach (ICD-10-PCS; CPT 64999; principal; 2020-07-20 11:15)
DX: M53.3 Sacrococcygeal disorders, not elsewhere classified (principal); M54.16 Radiculopathy, lumbar region; M79.7 Fibromyalgia; G43.909 Migraine, unspecified, not intractable, without status migrainosus; G47.00 Insomnia, unspecified; F32.9 Major depressive disorder, single episode, unspecified; Z79.899 Other long term (current) drug therapy
CPT/HCPCS: 64999; 64483; 77003; 81025; J7120

== ENCOUNTER → 2020-08-04 16:17 | Outpatient (CLI) | payer MEDICAID, SELFPAY ==
[2020-07-20 10:17] VITALS: BMI 26.4
[2020-08-04 16:56] LABS: Erythrocyte Sedimentation Rate 2 mm/hr (0-20)
[2020-08-04 17:43] LABS: CRP < 2.90 mg/L (0.0-3.0); Rheumatoid Factor < 10.0 IU/mL (<15); Uric Acid 4.6 mg/dL (2.6-6.0)
[2020-08-06 16:23] LABS: Lyme AB/Total Immuno < 0.91 ISR (0.00-0.90)
[2020-08-06 16:24] LABS: ANTINUCLEAR ANTIBODIES DIRECT Negative (Negative)
== END ==
PROVIDERS: PCP Nurse Practitioner Family; Visit Provider Nurse Practitioner Family
DX: M19.90 Unspecified osteoarthritis, unspecified site (principal); M54.40 Lumbago with sciatica, unspecified side; G89.29 Other chronic pain
CPT/HCPCS: 36415; 84550; 85652; 86038; 86140; 86431; 86618

== ENCOUNTER → 2020-11-25 17:40 | Outpatient (CLI) | payer MEDICAID, SELFPAY ==
[2020-07-20 10:17] VITALS: BMI 26.4
--- NOTE | 2020-11-25 17:53 | MRI_ITS ---
STUDY: MRI RIGHT HIP REASON FOR EXAM: Female, 30 years old. bursitis right hip, coccyalgia TECHNIQUE: Standardized fat and water weighted pulse sequences were obtained in all 3 orthogonal planes. The bilateral hips are included in the [id number] on several sequences. COMPARISON: None. FINDINGS: Mild patchy edema is present sacral segments extending down to the coccygeal vertebra and tip likely due to stress edema or perhaps inflammation. Minimal patchy edema is present in the bilateral piriformis muscles. No fracture line is seen. No erosions are present. No visualized osteophytes. No aggressive osseous abnormality. A small right hip joint effusion is present. No bone marrow edema or osteochondral defect is seen. No evidence of avascular necrosis. No demonstrated labral tear or detachment of the acetabula. Normal hip joint without articular joint space narrowing. Normal acetabulum. Normal labrum. Normal femoral head. Normal femoral neck and intratrochanteric region. Normal gluteus minimus, medius and iliopsoas tendons and distal insertions. There is no trochanteric, iliopsoas or iliopectineal bursitis. Normal superior and inferior pubic rami. Normal pubic symphysis. Normal ischial tuberosity. Normal origin of the hamstring tendons. Normal visualized iliac wing, sacroiliac joint, and sacral ala. Normal visualized soft tissue structures of the pelvis. MRI/Lower Ext Joint Only (Routine) IMPRESSION: 1. Mild patchy edema is present sacral segments extending down to the coccygeal vertebra and tip likely due to stress edema or perhaps inflammation. 2. No fracture line is seen. No erosions are present. No visualized osteophytes. No aggressive osseous abnormality. 3. Minimal patchy edema is present in the bilateral piriformis muscles. 4. A small right hip joint effusion is present. No bone marrow edema or osteochondral defect is seen. 5. No evidence of avascular necrosis. No demonstrated labral tear or detachment of the acetabula. Electronically Signed: Damon Rankin MD at 23:43 EST , Service support ,
== END ==
PROVIDERS: PCP Nurse Practitioner Family; Referring Provider Nurse Practitioner Family; Visit Provider Nurse Practitioner Family
DX: M70.71 Other bursitis of hip, right hip (principal); M53.3 Sacrococcygeal disorders, not elsewhere classified
CPT/HCPCS: 73721

== ENCOUNTER → 2021-03-08 16:34 | Outpatient (CLI) | payer MEDICAID, SELFPAY ==
[2021-02-23 10:11] VITALS: BMI 26.4
--- NOTE | 2021-03-08 17:00 | RAD_ITS ---
STUDY: X-RAY - SACRUM/COCCYX REASON FOR EXAM: Female, 30 years old. CONSTANT TAILBONE PAIN,R/O FRACTURE TECHNIQUE: 3 view(s) of the sacrum and coccyx were obtained. COMPARISON: None. FINDINGS: Normal bilateral sacroiliac joints. Normal visualized sacral ala and fused sacral bodies. Normal sacrococcygeal junction with a normal angulation. Normal coccygeal segments. The presacral soft tissue structures are unremarkable. RAD/Sacrum-Coccyx min 2 Views IMPRESSION: Normal x-rays of the sacrum and coccyx. Electronically Signed: Robert Boles MD at 9:07 EDT Tel , Service support ,
--- NOTE | 2021-03-08 17:11 | RAD_ITS ---
STUDY: X-RAY - PELVIS REASON FOR EXAM: Female, 30 years old. CONSTANT TAILBONE PAIN,R/O FRACTURE TECHNIQUE: One view of the pelvis was obtained. COMPARISON: None. FINDINGS: There is a non-specific bowel gas pattern. Normal visualized soft tissue structures. Normal bilateral iliac wings, sacroiliac joints and visualized sacrum. Normal visualized bilateral superior and inferior pubic rami. Normal pubic symphysis. Normal ischial tuberosities. Normal visualized right femoral head. Normal right acetabulum. Normal right hip joint. Normal visualized left femoral head. Normal left acetabulum. Normal left hip joint. RAD/Pelvis 1 or 2 Views IMPRESSION: Normal x-ray examination of the pelvis. Electronically Signed: Robert Boles MD at 9:05 EDT Tel , Service support ,
== END ==
PROVIDERS: PCP Nurse Practitioner Family; Referring Provider Anesthesiology Pain Medicine; Visit Provider Anesthesiology Pain Medicine
DX: M53.3 Sacrococcygeal disorders, not elsewhere classified (principal)
CPT/HCPCS: 72170; 72220

== ENCOUNTER → 2021-05-17 08:42 | Outpatient (CLI) | payer MEDICAID, SELFPAY ==
[2021-02-23 10:11] VITALS: BMI 26.4
--- NOTE | 2021-05-17 08:45 | BI_ITS ---
MAMMOGRAPHY - BILATERAL DIAGNOSTIC REASON FOR EXAM: Female, 30 years old. PAIN PERTINENT HISTORY: Non-contributory. TECHNIQUE: Digital examination. Mediolateral oblique (MLO) and craniocaudad (CC) views of both breasts were obtained. CAD: COMPARISON: None. FINDINGS: Breast Composition: Dense There are no dominant masses or suspicious calcifications. No other significant abnormalities are identified. BI/DIAG MAMM W/CAD, BILAT IMPRESSION: Normal bilateral diagnostic mammogram. ASSESSMENT CATEGORY: BIRADS Category 1: Negative. A letter regarding these results will be sent to the patient by the facility within 30 days. FOLLOW UP RECOMMENDATION: No imaging follow up needed. (O) Approximately 10% of breast cancers are not detected by mammography. A normal mammogram should not delay biopsy of a clinically suspicious abnormality. Electronically Signed: Shaq Clark DO at 12:02 EDT Tel , Service support ,
== END ==
PROVIDERS: PCP Nurse Practitioner Family; Referring Provider Obstetrics & Gynecology; Visit Provider Obstetrics & Gynecology
DX: N64.4 Mastodynia (principal)
CPT/HCPCS: 77062; 77066; G0279

== ENCOUNTER → 2021-08-25 16:13 | Outpatient (CLI) | payer MEDICAID, SELFPAY ==
[2021-08-25 18:04] LABS: hCG Titer Quant., Serum < 1 mIU/mL (1-3)
[2021-08-26 09:09] LABS: Progesterone Level 0.74 ng/mL (See Comment); Vitamin D,25 Hydroxy 33.9 ng/mL
== END ==
PROVIDERS: PCP Nurse Practitioner Family; Visit Provider Obstetrics & Gynecology
DX: E28.9 Ovarian dysfunction, unspecified (principal); E55.9 Vitamin D deficiency, unspecified
CPT/HCPCS: 36415; 82306; 84144; 84702

== ENCOUNTER → 2021-09-24 13:08 | Outpatient (CLI) | payer MEDICAID, SELFPAY ==
[2021-09-24 14:29] LABS: Estradiol 124.8 pg/mL
== END ==
PROVIDERS: PCP Nurse Practitioner Family; Visit Provider Obstetrics & Gynecology
DX: E28.9 Ovarian dysfunction, unspecified (principal); Z51.81 Encounter for therapeutic drug level monitoring
CPT/HCPCS: 36415; 82627; 82670; 84403; 82626

== ENCOUNTER 2021-12-30 10:47 | Outpatient (CLI) | payer MEDICAID, SELFPAY ==
--- NOTE | 2021-12-30 11:01 | ECHOD_ITS ---
Reason For Study: PALPITATIONS Procedure This was a 2D Doppler, Color Flow transthoracic echocardiogram. Exam performed in department. Left Ventricle Normal LV size. The estimated ejection fraction is 65 %. No evidence for diastolic dysfunction. No regional wall motion abnormalities noted. Right Ventricle Normal RV size. Normal systolic function. Atria Normal left atrium. Normal right atrium. No doppler evidence for ASD. Mitral Valve There is no mitral valve stenosis. No mitral valve insufficiency. Tricuspid Valve There is no tricuspid stenosis. Trivial eccentric tricuspid valve insufficiency. Pulmonary artery systolic pressure is 30 mmHg. Aortic Valve Trisinus/trileaflet aortic valve. There is no aortic stenosis. No aortic valve insufficiency. Pulmonic Valve There is no pulmonic valvular stenosis. No pulmonic valve insufficiency. Great Vessels Normal aortic root. Pericardium/Pleural No pericardial effusion. MMode/2D Measurements & Calculations LVIDd: 5.0 cm IVSd: 0.78 cm Ao root diam: 2.5 cm LVIDs: 2.8 cm LVPWd: 0.76 cm RVDd: 2.4 cm FS: 44.2 % LAV(MOD-bp): 65.6 ml LA A4 area: 18.5 cm2 LA dimension(2D): 3.7 cm LAV(MOD-bp) Indexed: 34.3 ml/m2 LAV(MOD-sp2): 60.8 ml LAV(MOD-sp4): 60.2 ml RA A4 area: 16.6 cm2 Time Measurements MV dec time: 0.19 sec Doppler Measurements & Calculations MV E max lam: 106.8 cm/sec Lat Peak E' Lam: 19.9 cm/sec Med Peak E' Lam: 14.7 cm/sec MV A max lam: 53.4 cm/sec E/E' lat: 5.4 E/E' med: 7.2 MV E/A: 2.0 Ao V2 max: 148.2 cm/sec LV V1 max: 116.6 cm/sec PA V2 max: 109.0 cm/sec Ao max P.8 mmHg LV V1 max P.4 mmHg TR max lam: 252.1 cm/sec TR max P.4 mmHg ECHO/Echo Complete Interpretation Summary The estimated ejection fraction is 65 %. No evidence for diastolic dysfunction. Ordering Physician: Robert Wong Referring Physician: Robert Wong Performed By: Nakia Rosa RDCS, RVT
[2021-12-30 11:32] LABS: PTHIN 45.6 pg/mL (18.4-80.1)
[2022-01-13 14:10] LABS: Aldosterone, Serum 3.4 ng/dL (0.0-30.0)
[2022-01-13 18:24] LABS: Adrenocorticotropic Hormone 25.3 pg/mL (7.2-63.3); Renin, Plasma 1.781 ng/mL/hr (0.167-5.380)
== END 2021-12-30 23:59 | disposition home or self-care (01) ==
LOC: CVS 10:51
PROVIDERS: PCP Nurse Practitioner Family; Visit Provider Nurse Practitioner Family
DX: R00.2 Palpitations (principal); E27.40 Unspecified adrenocortical insufficiency; I49.9 Cardiac arrhythmia, unspecified; I95.9 Hypotension, unspecified
CPT/HCPCS: 36415; 82024; 82088; 82533; 83970; 84244; 93306

== ENCOUNTER 2022-01-28 13:29 | Outpatient (CLI) | payer MEDICAID, SELFPAY ==
[2022-01-28 15:27] LABS: Progesterone Level 6.11 ng/mL (See Comment)
== END 2022-01-28 23:59 | disposition home or self-care (01) ==
LOC: WOBLAB 13:30
PROVIDERS: PCP Nurse Practitioner Family; Visit Provider Obstetrics & Gynecology
DX: N97.0 Female infertility associated with anovulation (principal)
CPT/HCPCS: 36415; 84144

== ENCOUNTER → 2022-03-16 | Outpatient (CLI) | payer MEDICAID, SELFPAY ==
[2022-03-16 15:59] LABS: Erythrocyte Sedimentation Rate 3 mm/hr (0-30)
[2022-03-16 16:03] LABS: Absolute Lymphocyte Count 1.99 X10^3/uL (0.83-4.51); Absolute Neutrophil Count 2.5 X10^3/uL (2.0-7.7); Basophil# 0.02 X10^3/uL; Basophil% 0.4 % (0-1); Eosinophil# 0.04 X10^3/uL; Eosinophils% 0.8 % (0-5); Hematocrit 38.5 % (37-47); Hemoglobin 12.6 g/dL (12.0-15.0); Lymphocyte # 1.99 X10^3/ul (0.83-4.51); Lymphocyte % 40.6 % (19-41); Mean Corp Hgb Conc 32.7 g/dL (32-36); Mean Corpuscular Hgb 29.4 pg (27.0-32.0); Mean Corpuscular Volume 89.7 fL (81-99); Mean Platelet Vol. 10.8 fl (6.2-12.0); Monocyte# 0.34 X10^3/uL; Monocyte% 6.9 % (0-10); NRBC Flagged by Analyzer 0 % (0-5); Neutrophil % 51.1 % (47-70); Platelet Count 248 K/mm3 (150-450); RBC Distribution Width CV 13.2 % (11.6-14.6); RBC Distribution Width SD 43.5 fl (35.1-43.9); Red Blood Count 4.29 M/mm3 (4.2-5.4); White Blood Count 4.9 K/mm3 (4.4-11.0)
[2022-03-16 16:04] LABS: ALB/GLOB Ratio 1.1 RATIO (0.9-2.4); AST(SGOT) 21 U/L (15-37); Alanine Aminotransfer ALT/SGPT 27 U/L (13-56); Albumin, Serum 3.5 g/dL (3.2-5.0); Alkaline Phosphatase 81 U/L (45-117); Anion Gap 6 (5-15); BUN 9 mg/dL (7-18); BUN/Creat Ratio 8.4 RATIO (10-20); CRP < 2.90 mg/L (0.0-3.0); Calcium,Total 8.8 mg/dL (8.5-10.1); Chloride 108 mmol/L (98-107); Creatinine, Serum 1.07 mg/dL (0.55-1.02); EST Glomerular Filtration Rate 64 mL/min (>60); Est Glom Filt Rate - Afr Amer 78 mL/min (>60); Globulin 3.2 g/dL (2.2-4.2); Glucose 78 mg/dL (74-106); Potassium 3.8 mmol/L (3.5-5.1); Protein, Total 6.7 g/dL (6.4-8.2); Sodium Level 142 mmol/L (136-145); Thyroid Stim Hormone (TSH) 0.63 uIU/mL (0.358-3.74)
[2022-03-18 14:10] LABS: Anti-Centromere B Ab <0.2 AI (0.0-0.9); Anti-Chromatin <0.2 AI (0.0-0.9); Anti-Jo <0.2 AI (0.0-0.9); Anti-Scleroderma-70 AB <0.2 AI (0.0-0.9); RNP Ab 0.3 AI (0.0-0.9); SJOGREN'S Anti-SS-A test < 0.2 AI (0.0-0.9); SJOGREN'S Anti-SS-B test < 0.2 AI (0.0-0.9); Smith Ab <0.2 AI (0.0-0.9)
[2022-03-18 16:42] LABS: Anti-dsDNA Ab <1 IU/mL (0-9)
[2022-03-18 17:07] LABS: Endomysial Antibody IgA Negative (Negative)
[2022-03-18 20:15] LABS: Immunoglobulin A 126 mg/dL (87-352); t-Transglutaminase IgA <2 U/mL (0-3)
== END | disposition home or self-care (01) ==
LOC: LAB 14:34
PROVIDERS: PCP Nurse Practitioner Family; Referring Provider Nurse Practitioner Adult Health; Visit Provider Nurse Practitioner Adult Health
DX: K59.00 Constipation, unspecified (principal); R10.30 Lower abdominal pain, unspecified; R10.13 Epigastric pain
CPT/HCPCS: 36415; 80053; 82784; 83516; 84443; 85025; 85652; 86140; 86225; 86235; 86255

== ENCOUNTER → 2022-05-04 | Outpatient (CLI) | payer MEDICAID, SELFPAY ==
--- NOTE | 2022-05-04 09:54 | NM_ITS ---
NUCLEAR BILIARY SCAN CLINICAL: Female, 31 years old. HISTORY: Cholelithiasis pain. History: nausea, postprandial abd pain, CHOLECYSTECTOMY 2 YEARS AGO TECHNIQUE: Following the intravenous administration of 5.2 MCI MEBROFENIN , hepatobiliary images was performed. COMPARISON STUDIES : Comparison: Jan 24 2020 9:34am FINDINGS: Relatively prompt and homogeneous radiopharmaceutical concentration is noted by a normal sized liver. There are no parenchymal defects noted. Gallbladder activity is not identified post radiopharmaceutical administration. This is consistent for a cholecystectomy. Small bowel activity is identified at 35 minutes post radiopharmaceutical administration. Washout of the radiopharmaceutical by the hepatic parenchyma occurs in a normal fashion on qualitative inspection. NM/Hepatobilliary Imaging IMPRESSION: There is no evidence for common duct obstruction. Electronically Signed: Laith Kaur MD at 14:50 EDT ,
[2022-05-04 13:17] LABS: Progesterone Level 53.98 ng/mL (See Comment)
== END | disposition home or self-care (01) ==
PROVIDERS: PCP Nurse Practitioner Family; Referring Provider Nurse Practitioner Adult Health; Visit Provider Nurse Practitioner Adult Health
DX: R10.9 Unspecified abdominal pain (principal); E25.9 Adrenogenital disorder, unspecified; Z90.49 Acquired absence of other specified parts of digestive tract
CPT/HCPCS: 36415; 78226; 84144; A9537

== ENCOUNTER 2022-06-21 14:00 | Day surgery (SDC) | payer MEDICAID, SELFPAY ==
[2022-06-21] VITALS (7 sets, daily range): BP systolic 91–133; BP diastolic 61–96; PULSE 61–84; RESP 16; TEMP 36.1–37; O2SAT 99–100; BMI 27.6
--- NOTE | 2022-06-21 14:17 | PCM.HP.BLA ---
History and Physical Date of Admission: 06/21/22 ?31 F who presents to the office today for f/u epigastric pain, lower abd pain, nausea, constipation. She established with us on 03/16/22 for abdominal pain, nausea and constipation x 3 yrs. Abd pain from gallstones resolved with cholecystectomy in 2019, but other abdominal pains persisted. Today she reports coughing fits, more frequent, when laughing/yelling/talking a long time w/o a drink, ends with big cough, no CP, no SOB or wheeze, no asthma hx, no dysphagia. Lab workup 03/2022: CBC unremarkable, creatinine 1.07 otherwise CM unremarkable, CRP normal, TSH normal, negative celiac, BENJAMIN comprehensive negative CT abd pel was denied by insurance. We got HIDA scan to [facility] for bile acid reflux, negative. Constipation -- Extreme diarrhea from Linzess 145 mcg, could only take once a week, didn't need metoclopramide then because upper abd ache resolved. She has max one BM per week, that has always been her pattern, doesn't strain, stool is small hard clumps, often doesn't feel like bowels empty. She did have some bright red blood a few months ago when she did strain. No melena. Occas takes colon cleanse pill, not sure if it helps. Has tried miralax and stool softeners for more than 2 wks w/o relief of constipation. She takes fiber gummies daily. Lower abdominal pain -- seems random, sometimes after eating, occurs every day. Better with Linzess. Epigastric pain -- better since she started omeprazole, describes this as gas type pains. Also significant improvement of upper abd pain when her constipation was treated with Linzess 145 mcg, didn't need metoclopramide then. Nausea -- Nausea was better but not gone when she took Linzess. Nausea can last a week at a time, waxes and wanes. We discussed use of scopolamine patch for nausea but held off due to her chronic dry eyes at this time. Almost constant nausea, not nauseous in AM--gets worse over the day, can be worse at times, x yrs also. Has tried rx meds w/o relief, not sure which meds. Rarely vomits. Heartburn -- controlled with omeprazole. Comorbidities include chronic back and hip pain, adrenal insufficiency for which she takes DHEA, hypotension, heart palpitations, HITESH, depression, fibromyalgia. 02/2020 cholecystectomy. Hx C section. 05/04/22 NM/Hepatobilliary Imaging IMPRESSION: There is no evidence for common duct obstruction. ? ROS Const Constitutional: Positive for fatigue ENT ENT: No difficulty swallowing Gastro GI: Positive for abdominal pain, bloating, constipation, diarrhea, heartburn, incontinent of stools and nausea/dyspepsia; No belching, change in bowel habits, change in stool character, coffee ground emesis, cramping, difficulty swallowing, feeling full early, excessive flatus, Vomiting blood/hematemesis, Blood in stool, loose stools, Black,tarry stools, pain with swallowing, vomiting or other Musc Musculoskeletal: Positive for joint pain, back pain, joint swelling, muscle weakness and stiffness Skin Skin: No yellowing of the eye or itchy eyes Psych Psychiatric: Positive for anxiety and Positive for depression Endo Endocrine: Positive for fatigue Aller/Imm Allergy/Immunologic: No itchy eyes Hong/Lymp Hematologic/Lymphatic: No easy bleeding or easy bruising Exam Const General: cooperative, comfortable and no acute distress Nutritional Appearance: overweight Orientation: alert, awake and oriented x3 Quality Reporting Tobacco Screening ([facility] 138) Smoking Status: Never smoker Assessment and Plan Assessment and Plan (1) Constipation: ?Status:?Acute ?Plan: 31 yr old female with chronic nausea, heartburn, constipation, epigastric pain, lower abdominal pain Samples of Linzess 72 mcg to try instead since Linzess 145 mcg caused severe diarrhea--but she did have improvement in upper and lower abd pain then, and didn't need metoclopramide then, nausea was also better Reviewed upcoming egd and colonoscopy, she's very nervous, reassurance provided Consider if CT abd pel needed after endo, CT was denied by insurance Continue omeprazole which is effective for heartburn f/u 2 wks after endoscopies (2) Nausea: ?Status:?Acute ?Plan: as above (3) Epigastric pain: ?Status:?Acute ?Plan: as above (4) Lower abdominal pain: ?Status:?Acute ?Plan:I have re-examined the patient. There are no clinical changes since date of exam.
[2022-06-21 14:28] LABS: Internal QC Validated? YES +Cl - CLEAR BKGD; Pregnancy, Urine Negative Negative
[2022-06-21] MEDS: Lactated Ringers 1,000 ML 15 ML IV (14:28)
--- NOTE | 2022-06-21 15:15 | COLBX_PTH ---
PATIENT: JESSEE QUIGLEY LOC: EN U#:[id number] AGE/SX: 31/F ROOM: RE06/21/[address]: Dr. Edmar Marr DO : 1990 BED: DIS: 06/21/2022 SPEC #: [id number] RECD: 06/21/22 17:21 STATUS: MADELIN ERROL #: [id number] DELVIN: 06/21/22 15:[address]: Edmar Marr DEPT: SURGICAL PATHOLOGY RECD BY: Fiordaliza Kate ENTERED: 06/22/22 08:33 SP TYPE: COLON BX OTHR DR: Robert Wong, SIGNAL TECHNICIAN-C Tissues: A - Duodenum, NOS B - Esophagus, NOS C - Ileum, NOS D - SPLENIC FLEXURE E - Descending colon Procedures: Special Stain Group II Surgery Specimen Level IV Alcian Blue/PAS (control) HEADER OPERATION: Colonoscopy, EGD ([facility] [place]) PRE-OP DIAGNOSIS: Constipation, nausea, epigastric pain, lower abdominal pain TISSUE SUBMITTED: A ? Duodenum biopsy, B ? Distal esophagus biopsy, C ? Terminal ileum biopsy, D ? Splenic flexure biopsy, E ? Descending colon biopsy MICROSCOPIC DIAGNOSIS A. 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 B. Distal esophagus, biopsy: Fragments of gastroesophageal mucosa with chronic inflammation. See comment. C. Terminal ileum, biopsy: Fragments of small intestinal mucosa, no pathologic diagnosis. D. Splenic flexure, biopsy: Fragments of colonic mucosa, no pathologic diagnosis. E. Descending colon, biopsy: Fragments of colonic mucosa, no pathologic diagnosis. SJ:severo 06/23/2022 COMMENT B. 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 Alcian blue/PAS stain with matched control is used in the evaluation of the specimen. MICROSCOPIC DESCRIPTION Slides are reviewed. GROSS DESCRIPTION A - Received in fixative is one container labeled with the patient's name and designated duodenum biopsy. The specimen consists of one irregular fragment of light elizondo soft tissue that measures 0.4 x 0.4 x 0.1 cm. The specimen is totally submitted in one cassette. B - Received in fixative is one container labeled with the patient's name and designated distal esophagus biopsy. The specimen consists of two irregular fragments of light elizondo soft tissue that in aggregate measure 0.5 x 0.3 x 0.1 cm. The specimen is totally submitted in one cassette. C - Received in fixative is one container labeled with the patient's name and designated terminal ileum biopsy. The specimen consists of multiple irregular fragments of light elizondo soft tissue that in aggregate measure 1.5 x 0.5 x 0.1 cm. The specimen is totally submitted in one cassette. D - Received in fixative is one container labeled with the patient's name and designated splenic flexure biopsy. The specimen consists of multiple irregular fragments of light elizondo soft tissue that in aggregate measure 2 x 0.3 x 0.1 cm. The specimen is totally submitted in one cassette. E - Received in fixative is one container labeled with the patient's name and designated descending colon biopsy. The specimen consists of two irregular fragments of light elizondo soft tissue that in aggregate measure 0.6 x 0.4 x 0.1 cm. The specimen is totally submitted in one cassette. / SJ:rg 06/22/2022 TC:3 CPT: 84790 x5, 52394
--- NOTE | 2022-06-21 16:10 | OP.EGD_ITS ---
Patient Name: Kylee Fuchs Procedure Date: 06/21/2022 3:30 PM Date of : 1990 Age: 31 Procedure: Upper GI endoscopy Indications: Epigastric abdominal pain Providers: Edmar Marr DO Medicines: Monitored Anesthesia Care Patient Profile: This is a 31 year old female. Refer to note in patient chart for documentation of history and physical. Patient has symptoms of chronic abdominal cramping and chronic global abdominal pain. Complications: No immediate complications. Procedure: Pre-Anesthesia Assessment: - Prior to the procedure, a History and Physical was performed, and patient medications and allergies were reviewed. The patient is competent. The risks and benefits of the procedure and the sedation options and risks were discussed with the patient. All questions were answered and informed consent was obtained. Patient identification and proposed procedure were verified by the physician in the pre-procedure area. Mental Status Examination: alert and oriented. Airway Examination: normal oropharyngeal airway and neck mobility. Respiratory Examination: clear to auscultation. CV Examination: normal. Prophylactic Antibiotics: The patient does not require prophylactic antibiotics. Prior Anticoagulants: The patient has taken no previous anticoagulant or antiplatelet agents. ASA Grade Assessment: II - A patient with mild systemic disease. After reviewing the risks and benefits, the patient was deemed in satisfactory condition to undergo the procedure. The anesthesia plan was to use monitored anesthesia care (MAC). Immediately prior to administration of medications, the patient was re-assessed for adequacy to receive sedatives. The heart rate, respiratory rate, oxygen saturations, blood pressure, adequacy of pulmonary ventilation, and response to care were monitored throughout the procedure. The physical status of the patient was re-assessed after the procedure. After obtaining informed consent, the endoscope was passed under direct vision. Throughout the procedure, the patient's blood pressure, pulse, and oxygen saturations were monitored continuously. The was introduced through the mouth, and advanced to the second part of duodenum. The upper GI endoscopy was accomplished without difficulty. The patient tolerated the procedure well. Scope In: 3:40:36 PM Scope Out: 3:46:07 PM Total Procedure Duration Time 0 hours 5 minutes 31 seconds Findings: The Z-line was irregular and was found 37 cm from the incisors. Biopsies were taken with a cold forceps for histology. Biopsies were taken with a cold forceps for histology. Verification of patient identification for the specimen was done. Estimated blood loss was minimal. A medium-sized hiatal hernia was present. A benign-appearing, intrinsic moderate stenosis was found at the pylorus. This was traversed. A TTS dilator was passed through the scope. Dilation with a 12 mm pyloric balloon dilator was performed. The dilation site was examined following endoscope reinsertion and showed moderate improvement in luminal narrowing. Estimated blood loss was minimal. Patchy mildly erythematous mucosa without active bleeding and with no stigmata of bleeding was found in the first portion of the duodenum. Biopsies were taken with a cold forceps for histology. Verification of patient identification for the specimen was done. Estimated blood loss was minimal. Impression: - Z-line irregular, 37 cm from the incisors. Biopsied. - Medium-sized hiatal hernia. - Gastric stenosis was found at the pylorus. Dilated. - Erythematous duodenopathy. Biopsied. Recommendation: - Discharge patient to home. - Resume previous diet. - Continue present medications. - Await pathology results. Procedure Code(s): --- Professional --- 41056, Esophagogastroduodenoscopy, flexible, transoral; with dilation of gastric/duodenal stricture(s) (eg, balloon, bougie) 59064, 59,51, Esophagogastroduodenoscopy, flexible, transoral; with biopsy, single or multiple CPT copyright 2017 [employer]. All rights reserved. The codes documented in this report are preliminary and upon mens locker room attendant review may be revised to meet current compliance requirements. Edmar Marr DO 06/21/2022 4:10:07 PM This report has been signed electronically. Number of Addenda: 0 Note Initiated On: 06/21/2022 3:30 PM
--- NOTE | 2022-06-21 16:10 | OP.CCLET_ITS ---
06/21/2022 Robert Wong Re : Upper GI endoscopy procedure for Kylee Locor Marvin This procedure was performed on Tuesday, June 21, 2022. My impressions and recommendations are as follows: Impressions : - Z-line irregular, 37 cm from the incisors. Biopsied. - Medium-sized hiatal hernia. - Gastric stenosis was found at the pylorus. Dilated. - Erythematous duodenopathy. Biopsied. Recommendations : - Discharge patient to home. - Resume previous diet. - Continue present medications. - Await pathology results. My findings are described in the full procedure note, which is enclosed. If I can be of further assistance, please feel free to contact me at . Sincerely, Edmar Marr, 06/21/2022 4:10:07 PM This report has been signed electronically.
--- NOTE | 2022-06-21 16:15 | OP.COLON_ITS ---
Patient Name: Kylee Fuchs Procedure Date: 06/21/2022 3:46 PM Date of : 1990 Age: 31 Procedure: Colonoscopy Indications: Generalized abdominal pain, Abnormal CT of the GI tract, Incidental abdominal pain noted, Incidental abdominal distress noted, Incidental change in bowel habits noted, Incidental constipation noted Providers: Edmar Marr DO Medicines: Monitored Anesthesia Care Patient Profile: This is a 31 year old female. Refer to note in patient chart for documentation of history and physical. Patient has symptoms of chronic abdominal cramping and chronic global abdominal pain. Last Colonoscopy: date unknown. Unable to locate last colonoscopy report. Complications: No immediate complications. Procedure: Pre-Anesthesia Assessment: - Prior to the procedure, a History and Physical was performed, and patient medications and allergies were reviewed. The patient is competent. The risks and benefits of the procedure and the sedation options and risks were discussed with the patient. All questions were answered and informed consent was obtained. Patient identification and proposed procedure were verified by the physician in the pre-procedure area. Mental Status Examination: alert and oriented. Airway Examination: normal oropharyngeal airway and neck mobility. Respiratory Examination: clear to auscultation. CV Examination: normal. Prophylactic Antibiotics: The patient does not require prophylactic antibiotics. Prior Anticoagulants: The patient has taken no previous anticoagulant or antiplatelet agents. ASA Grade Assessment: II - A patient with mild systemic disease. After reviewing the risks and benefits, the patient was deemed in satisfactory condition to undergo the procedure. The anesthesia plan was to use monitored anesthesia care (MAC). Immediately prior to administration of medications, the patient was re-assessed for adequacy to receive sedatives. The heart rate, respiratory rate, oxygen saturations, blood pressure, adequacy of pulmonary ventilation, and response to care were monitored throughout the procedure. The physical status of the patient was re-assessed after the procedure. After I obtained informed consent, the scope was passed under direct vision. Throughout the procedure, the patient's blood pressure, pulse, and oxygen saturations were monitored continuously. The colonoscope was introduced through the anus and advanced to the terminal ileum. The colonoscopy was performed without difficulty. The patient tolerated the procedure well. The quality of the bowel preparation was good. Scope In: 3:48:24 PM Scope Out: 4:02:38 PM Total Procedure Duration Time 0 hours 14 minutes 14 seconds Findings: The perianal exam findings include Decreased rectal tone}. Patchy mild mucosal changes characterized by erythema were found in the descending colon, at the splenic flexure and in the transverse colon. Biopsies were taken with a cold forceps for histology. Verification of patient identification for the specimen was done. Estimated blood loss was minimal. The terminal ileum appeared normal. Biopsies were taken with a cold forceps for histology. Verification of patient identification for the specimen was done. Estimated blood loss was minimal. Impression: - Decreased rectal tone} found on perianal exam. - Patchy mild mucosal changes were found in the descending colon, at the splenic flexure and in the transverse colon secondary to colitis. Biopsied. - The examined portion of the ileum was normal. Biopsied. Recommendation: - Discharge patient to home. - Resume previous diet. - Continue present medications. - Await pathology results. - Repeat colonoscopy is recommended. The colonoscopy date will be determined after pathology results from today's exam become available for review. Procedure Code(s): --- Professional --- 35959, Colonoscopy, flexible; with biopsy, single or multiple CPT copyright 2017 [employer]. All rights reserved. The codes documented in this report are preliminary and upon timber skidder review may be revised to meet current compliance requirements. Edmar Marr DO 06/21/2022 4:15:17 PM This report has been signed electronically. Number of Addenda: 0 Note Initiated On: 06/21/2022 3:46 PM
--- NOTE | 2022-06-21 16:15 | OP.CCLET_ITS ---
06/21/2022 Robert Wong Re : Colonoscopy procedure for Kylee Fuchs Dear Marvin This procedure was performed on Tuesday, June 21, 2022. My impressions and recommendations are as follows: Impressions : - Decreased rectal tone Edmar Marr, 06/21/2022 4:15:17 PM This report has been signed electronically.
== END 2022-06-21 17:11 | disposition home or self-care (01) ==
LOC: EN 14:01 → AC 14:03
PROVIDERS: Anesthesiology; PCP Nurse Practitioner Family; Referring Provider Nurse Practitioner Family; Visit Provider Internal Medicine Gastroenterology
PROC: 0DJD8ZZ Inspection of Lower Intestinal Tract, Via Natural or Artificial Opening Endoscopic (ICD-10-PCS; CPT 45378; principal; 2022-06-21 15:10)
DX: K31.1 Adult hypertrophic pyloric stenosis (principal); E27.40 Unspecified adrenocortical insufficiency; K21.00 Gastro-esophageal reflux disease with esophagitis, without bleeding; K44.9 Diaphragmatic hernia without obstruction or gangrene; K52.9 Noninfective gastroenteritis and colitis, unspecified; K59.00 Constipation, unspecified; R10.13 Epigastric pain; R10.30 Lower abdominal pain, unspecified; M79.7 Fibromyalgia; F32.A Depression, unspecified; F41.9 Anxiety disorder, unspecified; Z79.899 Other long term (current) drug therapy; Z90.49 Acquired absence of other specified parts of digestive tract
CPT/HCPCS: 45380; 43245; 43239; 81025; 88305; 88313; J7120; A4216; J2405

== ENCOUNTER → 2022-07-06 | Outpatient (CLI) | payer MEDICAID, SELFPAY ==
--- NOTE | 2022-07-06 15:34 | US_ITS ---
STUDY: SUPERFICIAL ULTRASOUND - RIGHT UPPER BUTTOCKS REASON FOR EXAM: Female, 31 years old. MASS OF SACRUM TECHNIQUE: A superficial ultrasound was performed with real-time and static sheriff-scale imaging. COMPARISON: None. FINDINGS: There is a 2.6 x 1.1 x 0.8 cm irregular complex fluid collection within the right gluteal cleft of indeterminate etiology possibly representing resorbing hematoma or complex pilonidal cyst.. US/Ext Non Vasc Limited/Soft Tiss IMPRESSION: Possible small resorbing hematoma or complex bilateral cyst in the right gluteal cleft Electronically Signed: Guille Armando MD at 17:22 EDT ,
== END | disposition home or self-care (01) ==
LOC: US 15:32
PROVIDERS: PCP Nurse Practitioner Family; Referring Provider Anesthesiology Pain Medicine; Visit Provider Anesthesiology Pain Medicine
DX: R22.2 Localized swelling, mass and lump, trunk (principal)
CPT/HCPCS: 76882

== ENCOUNTER 2022-08-18 05:50 | Day surgery (SDC) | payer MEDICAID, SELFPAY ==
[2022-08-18] VITALS (9 sets, daily range): BP systolic 108–119; BP diastolic 64–76; PULSE 55–80; RESP 16–18; TEMP 36.1–36.8; O2SAT 85–100; BMI 27.3
--- NOTE | 2022-08-18 | PILCYST_PTH ---
PATIENT: JESSEE QUIGLEY LOC: [facility] U#:[id number] AGE/SX: 32/F ROOM: RE08/18/[address]: Dr. Ashley Rivas MD : 1990 BED: DIS: 08/18/2022 SPEC #: [id number] RECD: 08/18/22 12:37 STATUS: MADELIN RERafael #: [id number] DELVIN: 08/18/22 00:[address]: Ashley Rivas DEPT: SURGICAL PATHOLOGY RECD BY: Amadeo Nolen ENTERED: 08/18/22 12:37 SP TYPE: Pilonidal OTHR DR: Robert Wong, BABATUNDE-Glynn Tissues: PILONIDAL TISSUE Procedures: Surgery Specimen Level III HEADER OPERATION: Excision pilonidal cyst PRE-OP DIAGNOSIS: Pilonidal cyst excision TISSUE SUBMITTED: Pilonidal cyst MICROSCOPIC DIAGNOSIS Pilonidal cyst, excision: Consistent with inflamed pilonidal cyst. AM:severo 08/19/2022 MICROSCOPIC DESCRIPTION Slides are reviewed. GROSS DESCRIPTION Received in fixative is one container labeled with the patient's name and designated pilonidal cyst. The specimen consists of an irregular fragment of pink-elizondo soft tissue measuring 2.2 x 1.5 x 0.5 cm. Attached to this is a possible irregular fragment of skin measuring 1 x 1 x 0.2 cm. The specimen is bisected and totally submitted in one cassette. / AM:severo 08/18/2022 TC:2 CPT: 53044
[2022-08-18] MEDS: Lactated Ringers 1,000 ML 15 ML IV ×2 (06:20→09:33)
[2022-08-18 06:34] LABS: Internal QC Validated? YES +Cl - CLEAR BKGD; Pregnancy, Urine Negative Negative
--- NOTE | 2022-08-18 07:09 | PCM.HP.STD ---
HPI - General General Date of Admission: 08/18/22 HPI Narrative JESSEE QUIGLEY, is a 32 F who presents for excision of pilonidal cyst. Patient states she still continued to have pain when sitting on that area?07/25 and still has a constant lower discomfort as well.. Patient denies any further clinical changes. from office visit 07/15/22 HPI HPI: 31 y/o F present to office for possible pilonidal cyst.? Pt has had a pressure feeling when sitting for about 6 years, denies any drainage, or infection of this area.? Pt states she is seeing pain management for this pressure/pain.? Pt states it is constant 5/10 for the last 3 years and it can be 10/10 if there is pressure on it like with sitting.? US does show possible complex cyst or reabsorbing hematoma- pt denies any trauma to this area.? Pt has vacation Aug 03- so would be interested in excision early August. [facility] Medical History Adrenal insufficiency Anxiety Arthrosis Bilateral headaches Carpal tunnel syndrome Depression Fibromyalgia Gastric reflux Gastroparesis History of echocardiogram History of hiatal hernia Hypotension IBS (irritable bowel syndrome) Migraine headache Non-smoker Wears contact lenses Home Medications multivitamin with minerals 1 ea PO DAILY 03/11/20 [History Last Taken 07/19/20] omeprazole 40 mg capsule,delayed release 40 mg PO DAILY #30 caps 04/27/20 [Rx Last Taken 07/20/20] metoclopramide HCl 5 mg tablet 5 mg PO PRN PRN Nausea 07/13/20 [History Last Taken 07/19/20] lubiprostone 8 mcg capsule (Amitiza) 8 mcg PO DAILY 08/11/22 [History Last Taken Unknown] clomiphene citrate 50 mg tablet (Clomid) See Rx Instructions .Route .COMPLEX 08/18/22 [History Last Taken Unknown] Allergy/AdvReac Type Severity Reaction Status Date / Time No Known Allergies Allergy Verified 08/11/22 11:07 Family History Other Anxiety Depression Myocardial infarction Surgical History History of delivery Hx of colonoscopy S/P laparoscopic cholecystectomy Social History Smoking Status: Never smoker alcohol intake: never substance use type: does not use what type of physical activity do you participate in: none Vital Signs Vital Signs Vital Signs: 08/18/22 06:38 08/18/22 06:38 Temperature 98.3 F Temperature Source Temporal Pulse Rate 80 Respiratory Rate 17 Respiratory Pattern Normal Blood Pressure 117/76 Blood Pressure Mean 89 Blood Pressure Source Monitor Blood Pressure Position Semi-Fowlers Blood Pressure Location Left Arm Pulse Ox 98 Oxygen Delivery Method Room Air Weight Weight: 169 lb 12.095 oz Body Mass Index (BMI) 27.3 Physical Exam Const alert, oriented x3 and no apparent distress HEENT normocephalic and head/scalp atraumatic Resp normal respiratory effort Cardio regular rate GI soft to palpation and non-tender; Negative for non-distended GI Narrative: Superior gluteal cleft--1 small pilonidal pit no obvious cyst felt on exam, tenderness palpation that area Extremity no clubbing, cyanosis or edema Neuro CN's II-XII intact bilaterally Psych mental status grossly normal Results Lab / Micro Data Labs: Laboratory Results - last 24 hr 08/18/22 06:25: Urine Test Negative Assessment & Plan Assessment/Plan (1) Pilonidal cyst: PLAN: Plan Plan for of pilonidal cyst excision. Discussed the procedure including risk of bleeding, infection, wound care if incision were to open, and anesthesia. Discussed with patient that this may or may not relieve her pain that she has been having in this area. Patient no further question this time and agreed to proceed. Ashley Rivas M.D. Pager: [phone] [facility] [address] [place] [address], [address] [place] [address] Office: [phone]
[2022-08-18] MEDS: Cefazolin 2 GM in 0.9% Normal Saline 100 ML IV (07:38)
[2022-08-18] MEDS: Bupivacaine 0.25%-Epi/Pf 1:200,000 10 ML (08:11)
--- NOTE | 2022-08-18 08:11 | PCM.OPRPT ---
Report of Operation Date of Procedure: 08/18/22 Pre-Operative Diagnosis: Pilonidal cyst Post-Operative Diagnosis: Same Surgery/Procedure Performed:: Excision of pilonidal cyst Surgeon: Ashley Rivas dock operations supervisor: Sophia Prince Type of Anesthesia: General/Supplemental Anesthesiologist: Filippo Chin Special Medications: Ancef 2 g IV x1 Specimen's removed: Pilonidal cyst Estimated Blood Loss (mL): < 10 cc Description of Procedure: Patient brought into operating room. A timeout was completed verifying correct patient, procedure, site, positioning, and special equipment prior to beginning procedure. General anesthesia was induced on the patient's cart prior to moving patient over prone to the table with appropriate padding. The superior gluteal cleft was prepped and draped in sterile fashion with Betadine. The panel output was identified and preoperative marking with ultrasound was done to identify the cyst. An elliptical incision was made around the pit to include the cyst and contents. This was dissected with electrocautery down to grossly normal tissue at the tailbone. Wound was irrigated with saline. The wound was closed with interrupted 0 Vicryl sutures. Horizontal mattress sutures x2 with 3-0 nylon and 1 interrupted with 3-0 nylon. OpSite was placed. Patient was extubated. Patient tolerated procedure well and was taken to the postanesthesia care unit in stable condition. Complications none
--- NOTE | 2022-08-18 08:14 | DCINST_ITS ---
Discharge Instructions Diet Discharge Diet: No restrictions Activity Discharge Activity: May Shower (After 1 day) and - Lifting Restrictions: No heavy lifting or strenuous activity. Additional Activity Instructions:: To help incision heal--- please set on 1 side/gluteal cheek or the other--not in the center. Dressing / Incision Call your doctor if your incision/area has: Continuous Slow Oozing, Sudden Increased Bleeding, Increased Pain/ Swelling and Increased Redness Call your doctor if you observe: Fever of 101 or Higher Change Dressing in: 2 days Remove Dressing in: 2 days (Okay to remove the gauze/pressure dressing in 2 days. Site can stay on for an additional day) Cleanse incision/area with: Soap & Water Follow Up Care Please Follow Up With: Ashley Rivas MD When: Call the office for follow-up appointment in 7-9 days for permanent suture removal. Test Results: Test results from this visit will be discussed in further detail at your follow- up appointment, if applicable. Discharge Plan Admission Attending Provider: Ashley Rivas Primary Care Provider: Robert Wong NP Discharge Orders/Prescriptions Prescriptions: New oxycodone-acetaminophen 5-325 mg tablet 1 - 2 tab PO Q6H PRN (Reason: pain) 2 Days Qty: 10 0RF Continued omeprazole 40 mg capsule,delayed release(DR/EC) 40 mg PO DAILY Qty: 30 1RF multivitamin with minerals 1 EACH tablet 1 ea PO DAILY metoclopramide HCl 5 MG tablet 5 mg PO PRN PRN (Reason: Nausea) lubiprostone [Amitiza] 8 mcg capsule 8 mcg PO DAILY clomiphene citrate [Clomid] 50 mg tablet See Rx Instructions .ROUTE .COMPLEX Label Comments: TAKE 1 TABLET BY MOUTH ONCE DAILY ON CYCLE DAYS 3-7 Rx Instructions: take days 3-7 of cycle Referrals / Follow Up: Robert Wong NP, [facility] [Primary Care Provider] - Disposition Disposition (needs filled in before D/C Order can be placed): Home, Self Care
== END 2022-08-18 10:26 | disposition home or self-care (01) ==
LOC: SDC 05:51 → AC 05:51
PROVIDERS: Anesthesiology; PCP Nurse Practitioner Family; Referring Provider Surgery; Visit Provider Surgery
PROC: (CPT 11770; principal; 2022-08-18 07:15)
DX: L05.91 Pilonidal cyst without abscess (principal); Z79.899 Other long term (current) drug therapy
CPT/HCPCS: 11770; 00300; 81025; 88304; J7120; J2405

== ENCOUNTER → 2022-10-26 | Outpatient (CLI) | payer MEDICAID, SELFPAY ==
[2022-10-26 10:17] LABS: Hematocrit 40.3 % (37-47); Hemoglobin 13.2 g/dL (12.0-15.0); Mean Corp Hgb Conc 32.8 g/dL (32-36); Mean Corpuscular Hgb 29.8 pg (27.0-32.0); Mean Platelet Vol. 10.6 fl (6.2-12.0); Platelet Count 218 K/mm3 (150-450); RBC Distribution Width CV 11.9 % (11.6-14.6); RBC Distribution Width SD 39.8 fl (35.1-43.9); RET-HE 34.7 pg (30-35); Red Blood Count 4.43 M/mm3 (4.2-5.4); Reticulocyte Count 1.49 % (0.5-1.5); White Blood Count 6.2 K/mm3 (4.4-11.0)
[2022-10-26 10:18] LABS: Erythrocyte Sedimentation Rate 4 mm/hr (0-30)
[2022-10-26 11:07] LABS: ALB/GLOB Ratio 1.1 RATIO (0.9-2.4); AST(SGOT) 15 U/L (15-37); Alanine Aminotransfer ALT/SGPT 22 U/L (13-56); Albumin, Serum 3.4 g/dL (3.2-5.0); Alkaline Phosphatase 72 U/L (45-117); Anion Gap 5 (5-15); BUN 8 mg/dL (7-18); BUN/Creat Ratio 7.6 RATIO (10-20); CRP < 2.90 mg/L (0.0-3.0); Chloride 107 mmol/L (98-107); Creatinine, Serum 1.05 mg/dL (0.55-1.02); EST Glomerular Filtration Rate 65 mL/min (>60); Est Glom Filt Rate - Afr Amer 79 mL/min (>60); Ferritin 17 ng/mL (8-252); Globulin 3.2 g/dL (2.2-4.2); Glucose 109 mg/dL (74-106); Iron 129 ug/dL (50-170); Iron Binding Capacity,Total 364 ug/dL (250-450); PERCENT IRON SATURATION 35.4 % (15.0-55.0); Potassium 4.1 mmol/L (3.5-5.1); Protein, Total 6.6 g/dL (6.4-8.2); Rheumatoid Factor < 10.0 IU/mL (<15); Sodium Level 141 mmol/L (136-145); Thyroid Stim Hormone (TSH) 1.21 uIU/mL (0.358-3.74)
[2022-10-26 13:27] LABS: Vitamin B12 337 pg/mL (211-911)
[2022-10-27 17:33] LABS: ANTINUCLEAR ANTIBODIES DIRECT Negative (Negative)
== END | disposition home or self-care (01) ==
LOC: LAB 09:08
PROVIDERS: PCP Nurse Practitioner Family; Referring Provider Nurse Practitioner Family; Visit Provider Nurse Practitioner Family
DX: D50.9 Iron deficiency anemia, unspecified (principal); R53.82 Chronic fatigue, unspecified; I95.9 Hypotension, unspecified; M79.7 Fibromyalgia; M25.50 Pain in unspecified joint
CPT/HCPCS: 36415; 80053; 82607; 82728; 82746; 83540; 83550; 84443; 85027; 85045; 85652; 86038; 86140; 86431

== ENCOUNTER → 2022-11-14 | Outpatient (CLI) | payer MEDICAID, SELFPAY ==
--- NOTE | 2022-11-14 14:00 | RAD_ITS ---
INDICATION: BACK PAIN/BURSITIS OF RT HIP EXAMINATION/TECHNIQUE: X-RAY - XR Spine Lumbar Min 4 Views: AP, lateral, spot and bilateral oblique views COMPARISON: None. FINDINGS: VERTEBRAE: Preserved vertebral body heights. No fracture or suspicious osseous lesion demonstrated. No spondylolisthesis. Preservation of the normal lumbar lordosis. No significant facet arthropathy. DISCS: Disc spaces are maintained. INCLUDED ABDOMEN: Included bowel gas pattern is non-obstructive. RAD/L/S Spine Min 4 Views IMPRESSION: Negative lumbar spine Electronically Signed: Kenji Botello MD at 22:21 EST ,
== END | disposition home or self-care (01) ==
PROVIDERS: PCP Nurse Practitioner Family; Referring Provider Nurse Practitioner Family; Visit Provider Nurse Practitioner Family
DX: M54.16 Radiculopathy, lumbar region (principal); M70.71 Other bursitis of hip, right hip
CPT/HCPCS: 72110

== ENCOUNTER → 2022-12-02 | Outpatient (CLI) | payer MEDICAID, SELFPAY ==
[2022-12-02 10:07] LABS: Progesterone Level 22.04 ng/mL (See Comment)
== END | disposition home or self-care (01) ==
LOC: LAB 09:16
PROVIDERS: PCP Nurse Practitioner Family; Referring Provider Registered Nurse; Visit Provider Registered Nurse
DX: N97.0 Female infertility associated with anovulation (principal)
CPT/HCPCS: 36415; 84144

== ENCOUNTER 2023-01-03 17:00 | Outpatient (RCR) | payer MEDICAID, SELFPAY ==
--- NOTE | 2022-11-30 15:21 | HP.PTEVAL ---
Patient's Visit Information JESSEE QUIGLEY is a 32 year old F referred to Physical Therapy by MARK Rico with a diagnosis of lumbar radiculopathy, R hip bursitis. Date of Evaluation: 11/30/22 Physical Therapist: Hank Rangel, DPT, OCS, CSCS - Visit Plan Frequency: 2x /Week Duration: 4-6 Weeks Plan: 2x/week for 4-6 weeks for... 1. PA mobs to l5/s1 and upper lumbar, Low back ROM, yoga exercises to HEP, pelvic mobility. 2. stretch ITB and psoas and gastroc and progress to HEP. 3. core stability that patient can do at home with pics and list to I. NS focus please, has poor pelvic mobility. Declined pool therapy, may need MRI if no improvements - Subjective Dr. Ruiz sent her. She has LBP and hip pain for >3 yrs. Found a cyst on tailbone two months ago and had it removed. No change to pain. Pain is now same as 3 yrs ago and started suddenly but insidiously. dull and constant, worse on feet all day and into B hips burning to anterior hips. Gets sharp pain in back now and then without reason. Sleep is interrupted in that her hips hurt as she sleeps on her side. 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 Basic ADLS: getting done. Activities not avoided anything, hobbies include having dtr 7 yo. Avoids walking alot at the park. Not sure if 3-4 or longer OK. tried some yoga stretching after cyst surgery. Legs tingle if in wrong position (legs underneath) for too long - Pain LBP Pain Intensity (Out of 10): 5 Pain Intensity Range: 2, 6, 9 - Objective Walks slowly but I back to PT department. Trasnfers bed and chair I, steps reciprocally and slowly. lots of c/o pain in LB with positioning(any) and steps and standing but no wincing or nonverbal signs and not a consistent pattern. Says she will hurt alot today from the simple leg muscle testing. Posture is decreased lordosis except for L34 whcih hinges especially with movement. No tenderness in paraspinals today, mild in L GT area and ITB. Some kyphosis in thoracic spine. pekvic mobility is poor and near nil. tightness apparent in ITB min, psoas min and gastroc mod. LB AROM extension painful at L34 and max limited in lubar area at other segments, hinges at L34. Flexion is full and SB are full without pain. Strength LE 4- without myuotomal abnormalities, core strength 3+ abs and extensors. reflexes 2/3 in patella and achilles. Sensation LE WNL to gross light touch. + instability in sitting and standing. PA pressure hurts at L34, 45, s1. Hip and knee aROM and PROm full and without increased pain. - Balance/Special Test Scores Oswestry Low Back Score: 19 - Goals Goal 1:: Sleep without waking due to back pain Goal Time Frame: 4-6 Weeks Goal 2:: 0-3/10 pain at all times and 50% improved. Goal Time Frame: 4-6 Weeks Goal 3:: I appropriate ex to manage condition Goal Time Frame: 4-6 Weeks Goal 4:: oswestry score 8 or better Goal Time Frame: 4-6 Weeks - Rehabilitation Potential Physical Therapy Diagnosis: chronic longstanding LBP into hips with some ROM deficits, tightness and weakness Rehabilitation Potential: Questionable - Anticipated Interventions Patient/Client Instruction: Educate patient on: Condition, Plan of Care For the Purpose of:: To decrease pain, To increase ROM, To improve nutrient delivery to tissue, To improve muscle performance and motor function, To increase tolerance to activity/condition/position Therapeutic Exercise to Include: Strength training, Flexibilty training, Passive ROM, Active ROM, Dynamic Lumbar Stabilization For the Purpose of:: To decrease pain, To increase ROM, To improve muscle performance and motor function, To increase tolerance to activity/condition/position, To improve ability of physical actions for home/community/work/leisure, To improve gait and locomotor functions Thank you for the opportunity to evaluate your patient. For Medicare and Medicare HMO plans, please review the plan of care and approve it. It will need to be FAXED BACK to us at [phone] for Medicare purposes. For Medicare only, by signing this I certify the plan of care. Please let me know if there are questions or concerns regarding this plan of care. Physician Signature: Date:
--- NOTE | 2023-01-03 17:19 | HP.PTDCSUM ---
It has been my pleasure to treat JESSEE QUIGLEY referred by MARK Rico, with the diagnosis of lumbar radiculopathy, R hip bursitis for a total of 9 visit(s). Discharge Date: 01/03/23 Please see the following information for a summary of their discharge status. Subjective: Allright. Pain still up to 6/10 this week and worse with standing and walking all day at work. not working days still 6/10 and hurts bad on the weekends. After work 6/10 before work 3/10. Weekends start 3/10 and then increases 6/10 after an hour or two. Cleans and does laundry on the weekends. trying to do exercises at home. Yoga pilates stretches. Dealing with tummy issues also which makes ex hard. Sleeping OK, not well. Not sure what next step is but thinks it may be MRI. LBP Pain Intensity (Out of 10): 6 % Improvement: 0 Objective/Function: LBP ext good motion with increased motion, bending forward feels good and SB are symmetrical. pt not subjectively improving with pain and says worse after work but then not better on off days either. L/S AROM WFL and only slight increased pain with extension, Flexion and SB have no increased pain. Goal 1:: Sleep without waking due to back pain Goal Progress: Not Progressing Goal 2:: 0-3/10 pain at all times and 50% improved. Goal Progress: Not Progressing Goal 3:: I appropriate ex to manage condition Goal Progress: ???compliance Goal 4:: oswestry score 8 or better Goal Progress: Not Progressing Plan: d/c, pt to contact doctor regarding next step. Discharge Comments: back to doctor for next medical step. Pt does not wish to trial aquatic therapy. If there are questions or concerns regarding this patient's physical therapy, please feel free to call me at [phone]. Thank you for the referral of this patient. Sincerely, Hank Rangel, DPT, OCS, CSCS Balance/Gait/Functional tests - Balance/Special Test Scores Oswestry Low Back Score: 20
== END 2023-01-03 19:00 | disposition home or self-care (01) ==
LOC: PT 17:00
PROVIDERS: PCP Nurse Practitioner Family; Referring Provider Nurse Practitioner Family; Visit Provider Nurse Practitioner Family
DX: M53.3 Sacrococcygeal disorders, not elsewhere classified (principal); M54.9 Dorsalgia, unspecified; M54.16 Radiculopathy, lumbar region; M70.71 Other bursitis of hip, right hip
CPT/HCPCS: 97110; 97162; 97164

== ENCOUNTER → 2023-01-03 | Outpatient (CLI) | payer MEDICAID, SELFPAY ==
[2023-01-03 10:27] LABS: Absolute Lymphocyte Count 1.78 X10^3/uL (0.83-4.51); Absolute Neutrophil Count 3.1 X10^3/uL (2.0-7.7); Basophil# 0.03 X10^3/uL; Basophil% 0.6 % (0-1); Eosinophil# 0.03 X10^3/uL; Eosinophils% 0.6 % (0-5); Hematocrit 40.5 % (37-47); Hemoglobin 13.3 g/dL (12.0-15.0); Lymphocyte # 1.78 X10^3/ul (0.83-4.51); Lymphocyte % 34.1 % (19-41); Mean Corp Hgb Conc 32.8 g/dL (32-36); Mean Corpuscular Hgb 29.8 pg (27.0-32.0); Mean Corpuscular Volume 90.6 fL (81-99); Mean Platelet Vol. 10.2 fl (6.2-12.0); Monocyte% 5.7 % (0-10); NRBC Flagged by Analyzer 0 % (0-5); Neutrophil # 3.07 X10^3/uL (2.7-7.7); Neutrophil % 58.8 % (47-70); Platelet Count 217 K/mm3 (150-450); RBC Distribution Width CV 11.8 % (11.6-14.6); Red Blood Count 4.47 M/mm3 (4.2-5.4); White Blood Count 5.2 K/mm3 (4.4-11.0)
[2023-01-03 11:05] LABS: ALB/GLOB Ratio 1.2 RATIO (0.9-2.4); AST(SGOT) 17 U/L (15-37); Alanine Aminotransfer ALT/SGPT 24 U/L (13-56); Albumin, Serum 3.7 g/dL (3.2-5.0); Alkaline Phosphatase 69 U/L (45-117); Anion Gap 6 (5-15); BUN 13 mg/dL (7-18); BUN/Creat Ratio 11.6 RATIO (10-20); Calcium,Total 9.2 mg/dL (8.5-10.1); Chloride 111 mmol/L (98-107); Creatinine, Serum 1.12 mg/dL (0.55-1.02); EST Glomerular Filtration Rate 61 mL/min (>60); Est Glom Filt Rate - Afr Amer 73 mL/min (>60); Globulin 3.2 g/dL (2.2-4.2); Glucose 110 mg/dL (74-106); LDH 81 U/L (84-246); Potassium 4.2 mmol/L (3.5-5.1); Protein, Total 6.9 g/dL (6.4-8.2); Sodium Level 141 mmol/L (136-145)
[2023-01-05 17:07] LABS: Albumin 3.8 g/dL (2.9-4.4); Alpha-1-Globulins 0.2 g/dL (0.0-0.4); Alpha-2-Globulins 0.6 g/dL (0.4-1.0); Cytoplasmic Ab (C-ANCA) <1:20 titer (Neg:<1:20); Gamma Globulin 0.9 g/dL (0.4-1.8); Immunoglobulin A 128 mg/dL (87-352); Immunoglobulin E 4 IU/mL (6-495); Immunoglobulin G 904 mg/dL (586-1602); Immunoglobulin M 123 mg/dL (26-217); PROEL- TOTAL PROTEIN 6.6 g/dL (6.0-8.5)
[2023-01-05 20:25] LABS: Perinuclear Ab (P-ANCA) <1:20 titer (Neg:<1:20)
== END | disposition home or self-care (01) ==
PROVIDERS: PCP Nurse Practitioner Family; Referring Provider Nurse Practitioner Adult Health; Visit Provider Nurse Practitioner Adult Health
DX: R10.9 Unspecified abdominal pain (principal); K59.00 Constipation, unspecified
CPT/HCPCS: 36415; 80053; 82784; 82785; 83615; 84165; 85025; 86256; 86334

== ENCOUNTER → 2023-01-10 | Outpatient (CLI) | payer MEDICAID, SELFPAY ==
--- NOTE | 2023-01-10 10:20 | US_ITS ---
STUDY: ABDOMINAL ULTRASOUND REASON FOR EXAM: Female, 32 years old. Abd pain -- RUQ, LUQ TECHNIQUE: Transabdominal ultrasound was performed with real-time and static sheriff scale imaging. TECHNICAL QUALITY: Adequate. COMPARISON: None. FINDINGS: Liver: The liver measures 15 cm. There is normal echogenicity of the liver. The bile ducts are within normal limits. There is hepatic color flow. The direction of portal flow is hepatopetal. There is no demonstrated mass lesion. Portal vein measurement: Gallbladder: The gallbladder has been surgically removed. Common Bile Duct (C.B.D.): The common bile duct measures 3 mm. Pancreas: Normal size of the head, body and tail of the pancreas. There is normal echogenicity of the pancreas. There is no demonstrated pancreatic mass or cyst. Spleen: Normal size of the spleen. The spleen measures 11.8 x 4.3 cm. Right Kidney: Normal size of the right kidney. The right kidney measures 10.8 x 4.1 x 3.8 cm. Normal renal cortex. The right cortex measures 1.1 cm. There is no demonstrated renal mass or cyst. There is no right hydronephrosis. Left Kidney: Normal size of the left kidney. The left kidney measures 10.8 x 4.7 x 4.7 cm. Normal renal cortex. The left cortex measures 1.1 cm. There is no demonstrated renal mass or cyst. There is no left hydronephrosis. Aorta: Approximately distal aorta measures 1.5, 1.4, 1.2 cm. I.V.C.: The IVC is patent. There is no ascites. US/Abdomen Complete IMPRESSION: Status post cholecystectomy. No hydronephrosis. Electronically Signed: Rosa Elena Alexandre MD at 22:51 EDT ,
== END | disposition home or self-care (01) ==
LOC: US 10:16
PROVIDERS: PCP Nurse Practitioner Family; Referring Provider Nurse Practitioner Adult Health; Visit Provider Nurse Practitioner Adult Health
DX: R10.9 Unspecified abdominal pain (principal); K59.00 Constipation, unspecified
CPT/HCPCS: 76700

== ENCOUNTER → 2023-02-03 | Outpatient (CLI) | payer MEDICAID, SELFPAY ==
--- NOTE | 2023-02-03 15:27 | MRI_ITS ---
STUDY: MRI LUMBAR SPINE WITH AND WITHOUT CONTRAST REASON FOR EXAM: Female, 32 years old. BACK PAIN, LUMBAR RADICULOPATHY TECHNIQUE: Standardized fat and water weighted pulse sequences were obtained in the sagittal and axial planes. IV 15 CC CLARISCAN was administered for the contrast portion of the examination. COMPARISON: May 18, 2020 FINDINGS: T12-L1: Normal endplates. Normal disc height, hydration and morphology. Normal bilateral facet joints. Normal central canal and bilateral lateral recesses. Normal bilateral intervertebral neural foramina. Normal lumbar lordosis. There is no substantial scoliosis. Normal conus medullaris that terminates at L1 L1-2: Normal endplates. Normal disc height, hydration and morphology. Normal bilateral facet joints. Normal central canal and bilateral lateral recesses. Normal bilateral intervertebral neural foramina. L2-3: Normal endplates. Normal disc height, hydration and morphology. Normal bilateral facet joints. Normal central canal and bilateral lateral recesses. Normal bilateral intervertebral neural foramina. L3-4: Normal endplates. Normal disc height, hydration and minor annular bulge with small bilateral foraminal disc protrusions... Normal bilateral facet joints. Normal central canal and bilateral lateral recesses. Mild bilateral neural foraminal encroachment. L4-5: Normal endplates. Normal disc height, hydration and minimal annular bulge with small bilateral foraminal disc protrusions slightly larger on the left. Mild facet arthropathy. Joints. Normal central canal and bilateral lateral recesses. Mild right neural foraminal encroachment and moderate narrowing on the left. L5-S1: Normal endplates. Normal disc height, hydration and minimal annular bulge.. Mild facet arthropathy.. Normal central canal and bilateral lateral recesses. Normal bilateral intervertebral neural foramina. Normal visualized sacral ala. No abnormal enhancement following contrast administration Normal visualized paraspinous soft tissue structures. MRI/Spine Lumbar W/WO Contrast IMPRESSION: No evidence for acute fracture or other significant bony pathology.. Mild bilateral neural foraminal stenosis at L3-4 secondary to small bilateral foraminal disc protrusions Mild right neural foraminal stenosis and slightly more pronounced stenosis on the left secondary to minimal bulging annulus and bilateral foraminal disc protrusions slightly larger than left with mild facet arthropathy No abnormal enhancement following contrast administration Electronically Signed: Guille Armando MD at 16:38 EDT ,
== END | disposition home or self-care (01) ==
LOC: MRI 15:18
PROVIDERS: PCP Nurse Practitioner Family; Referring Provider Nurse Practitioner Acute Care; Visit Provider Nurse Practitioner Acute Care
DX: M54.16 Radiculopathy, lumbar region (principal); M53.3 Sacrococcygeal disorders, not elsewhere classified
CPT/HCPCS: 72158; A9575

== ENCOUNTER → 2023-04-12 | Outpatient (CLI) | payer MEDICAID, SELFPAY ==
[2023-04-12 10:43] LABS: Erythrocyte Sedimentation Rate 5 mm/hr (0-30)
[2023-04-12 10:47] LABS: Absolute Lymphocyte Count 1.84 X10^3/uL (0.83-4.51); Absolute Neutrophil Count 5.2 X10^3/uL (2.0-7.7); Basophil# 0.03 X10^3/uL; Basophil% 0.4 % (0-1); Eosinophil# 0.08 X10^3/uL; Eosinophils% 1.1 % (0-5); Hematocrit 39.7 % (37-47); Hemoglobin 13.2 g/dL (12.0-15.0); Lymphocyte # 1.84 X10^3/ul (0.83-4.51); Lymphocyte % 24.3 % (19-41); Mean Corp Hgb Conc 33.2 g/dL (32-36); Mean Corpuscular Hgb 30.7 pg (27.0-32.0); Mean Corpuscular Volume 92.3 fL (81-99); Monocyte# 0.35 X10^3/uL; Monocyte% 4.6 % (0-10); NRBC Flagged by Analyzer 0 % (0-5); Neutrophil # 5.23 X10^3/uL (2.7-7.7); Neutrophil % 69.2 % (47-70); Platelet Count 256 K/mm3 (150-450); RBC Distribution Width CV 12.6 % (11.6-14.6); RBC Distribution Width SD 41.8 fl (35.1-43.9); White Blood Count 7.6 K/mm3 (4.4-11.0)
[2023-04-12 11:07] LABS: CRP < 2.90 mg/L (0.0-3.0)
[2023-04-15 22:08] LABS: Anti-Centromere B Ab <0.2 AI (0.0-0.9); Anti-Chromatin <0.2 AI (0.0-0.9); Anti-Jo <0.2 AI (0.0-0.9); Anti-Scleroderma-70 AB <0.2 AI (0.0-0.9); Anti-dsDNA Ab <1 IU/mL (0-9); Beef <0.10 kU/L (Class 0); Chocolate <0.10 kU/L (Class 0); Clam <0.10 kU/L (Class 0); Codfish <0.10 kU/L (Class 0); Corn <0.10 kU/L (Class 0); Egg, White <0.10 kU/L (Class 0); Egg, Whole <0.10 kU/L (Class 0); Milk (Cow) <0.10 kU/L (Class 0); Peanut <0.10 kU/L (Class 0); Pork <0.10 kU/L (Class 0); RNP Ab 0.2 AI (0.0-0.9); SCALLOP <0.10 kU/L (Class 0); SESAME SEED <0.10 kU/L (Class 0); SJOGREN'S Anti-SS-A test < 0.2 AI (0.0-0.9); SJOGREN'S Anti-SS-B test < 0.2 AI (0.0-0.9); Shrimp <0.10 kU/L (Class 0); Smith Ab <0.2 AI (0.0-0.9); Soybean <0.10 kU/L (Class 0); Walnut, (Food) <0.10 kU/L (Class 0); Wheat <0.10 kU/L (Class 0)
[2023-04-16 01:06] LABS: Albumin 3.6 g/dL (2.9-4.4); Alpha-1-Globulins 0.2 g/dL (0.0-0.4); Alpha-2-Globulins 0.6 g/dL (0.4-1.0); Cytoplasmic Ab (C-ANCA) <1:20 titer (Neg:<1:20); Endomysial Antibody IgA Negative (Negative); Gamma Globulin 0.9 g/dL (0.4-1.8); Immunoglobulin A 147 mg/dL (87-352); Immunoglobulin E 4 IU/mL (6-495); Immunoglobulin G 877 mg/dL (586-1602); Immunoglobulin M 123 mg/dL (26-217); PROEL- TOTAL PROTEIN 6.4 g/dL (6.0-8.5); Perinuclear Ab (P-ANCA) <1:20 titer (Neg:<1:20); t-Transglutaminase IgA <2 U/mL (0-3)
== END | disposition home or self-care (01) ==
LOC: LAB 09:06
PROVIDERS: PCP Nurse Practitioner Family; Referring Provider Internal Medicine Gastroenterology; Visit Provider Internal Medicine Gastroenterology
DX: T78.40XA Allergy, unspecified, initial encounter (principal); R10.9 Unspecified abdominal pain; X58.XXXA Exposure to other specified factors, initial encounter
CPT/HCPCS: 36415; 82784; 82785; 83516; 84165; 85025; 85652; 86003; 86005; 86140; 86225; 86235; 86255; 86256; 86334

== ENCOUNTER → 2023-04-15 | Outpatient (CLI) | payer MEDICAID, SELFPAY ==
--- NOTE | 2023-04-15 11:02 | RAD_ITS ---
INDICATION: Sitz marker study EXAMINATION/TECHNIQUE: X-RAY - XR Abdomen 1 View COMPARISON: None FINDINGS: BOWEL GAS PATTERN: Moderate amount of fecal retention. Half of the Sitz markers are in the proximal transverse colon while the other half are in the rectum. FREE AIR: Not assessed on a single supine view. ORGANOMEGALY: Not seen. CALCIFICATIONS: No abnormal calcifications observed. LOWER CHEST: No acute pathology. BONES AND SOFT TISSUES: No acute pathology. RAD/Abdomen Single View IMPRESSION: Half of the Sitz markers are in the proximal transverse colon while the other half are in the rectum. Moderate amount of fecal retention. Electronically Signed: Fer Saldivar MD at 23:41 EDT ,
== END | disposition home or self-care (01) ==
LOC: RAD 11:00
PROVIDERS: PCP Nurse Practitioner Family; Referring Provider Internal Medicine Gastroenterology; Visit Provider Internal Medicine Gastroenterology
DX: K59.00 Constipation, unspecified (principal)
CPT/HCPCS: 74018

== ENCOUNTER 2023-04-16 12:19 | Emergency (ER) | payer MEDICAID, SELFPAY ==
[2023-04-16 12:19] VITALS: BP 112/75; PULSE 77; RESP 16; TEMP 36.6; O2SAT 99; BMI 27.1
--- NOTE | 2023-04-16 12:48 | EX.ED.VIS.EY ---
HPI History of Present Illness Chief Complaint: Eye Problem Detail of Chief Complaint: Right eye discomfort and watering for the last 9 days. Informant: patient Onset/Context/Timing Location: Right Eye Onset: Days Context: Gradual Onset Timing: Continuous Current Severity: Mild Maximum Severity: Mild Associated Symptoms Associated Symptoms - Eyes: Burning, Drainage, Pain and Redness; Negative for Eyelid swelling, Foreign body sensation, Itching, Matting or Photophobia History of injury: No Visual correction: Glasses and Corrective contact lenses Narrative Narrative: 32-year-old female right eye discomfort and watering for 9 days. She does have extended wear contacts. When this began she took a mile for 3 days but then she had to go back to work and start wearing them again. She said she is never had anything like this. Is primarily watering there is minimal discharge. She denies any trauma or foreign body sensation. No prior eye history or surgery. Prior similar symptoms: No Recent Illness/Hospitalization: No PFSH PFSH Medical History Adrenal insufficiency Anxiety Arthrosis Bilateral headaches Carpal tunnel syndrome Depression Fibromyalgia Gastric reflux Gastroparesis History of echocardiogram History of hiatal hernia Hypotension IBS (irritable bowel syndrome) Migraine headache Non-smoker Wears contact lenses Home Medications multivitamin with minerals 1 ea PO DAILY 03/11/20 [History Last Taken 07/19/20] omeprazole 40 mg capsule,delayed release 40 mg PO DAILY #30 caps 04/27/20 [Rx Last Taken 07/20/20] metoclopramide HCl 5 mg tablet 5 mg PO PRN PRN Nausea 07/13/20 [History Last Taken 07/19/20] famotidine 20 mg tablet 20 mg PO BID #60 tabs 04/12/23 [Rx Last Taken Unknown] moxifloxacin 0.5 % eye drops (Vigamox) 1 drp RIGHT EYE .Every hour 7 days #3 mL 04/16/23 [Rx Last Taken Unknown] Allergy/AdvReac Type Severity Reaction Status Date / Time No Known Allergies Allergy Verified 04/16/23 12:21 Family History Other Anxiety Depression Myocardial infarction Surgical History History of delivery History of excision of pilonidal cyst Hx of colonoscopy S/P laparoscopic cholecystectomy Social History number of children: 1 current occupational status: employed current occupation: [employer] current occupational exposures/hazards: No pets and animals: Yes pets and animals: cat(s) sexually active: Yes Smoking Status: Never smoker second hand exposure: No alcohol intake: never substance use type: does not use what type of physical activity do you participate in: none and yoga seatbelt use: always do you feel safe at home: Yes additional social history: significant other - Humberto KEATING ROS ED ROS Narrative Right eye discomfort and watering. Review of Systems ROS Unobtainable: Denies due to encephalopathy Constitutional Constitutional ED: Denies chills or fever(s) Eyes Eyes: Denies blurry vision, change in vision or diplopia ENT ENT ED: Denies ear pain Cardiovascular Cardiovascular: Denies chest pain Respiratory/Chest Respiratory/Chest: Denies cough or dyspnea Gastrointestinal Gastrointestinal: Denies abdominal pain Genitourinary Genitourinary ED: Denies dysuria Musculoskeletal Musculoskeletal: Denies arthralgias Integumentary Denies abscess Neurologic Neurologic: Denies headache(s) Psychiatric Psychiatric: Denies anxiety Endocrine Endocrinology: Denies polydipsia Hematologic/Lymphatic Hematologic/Lymphatic: Denies easy bleeding or easy bruising Allergic/Immunologic Allergic/Immunologic ED: Denies mouth swelling EXAM Physical Exam Narrative Exam Narrative: Well-appearing 32-year-old female. Vital signs stable afebrile. HEENT exam shows glasses on. Pupils round reactive light his motions are intact. Right eye is red, injected and watering. No discharge. Upper and lower lids are unremarkable. No swelling. No preauricular lymphadenopathy. No orbital swelling. No pain with range of motion. Left eye is unremarkable. Neck nontender. No lymphadenopathy. Lungs clear. Heart regular rhythm. Otherwise exam unremarkable. Const Vital Signs: 04/16/23 12:19 Temperature 98 F Temperature Source Temporal Pulse Rate 77 Respiratory Rate 16 Blood Pressure 112/75 Blood Pressure Mean 87 Pulse Ox 99 Oxygen Delivery Method Room Air Positive well nourished and well developed; Negative for cachectic, contractures or unkempt General Appearance ED: well developed and NAD; Negative for unkempt, cachectic or contractures Nutritional Appearance: Negative for cachectic HEENT Denies other atraumatic; Negative for trauma, tenderness or other Eyes Eyes Narrative: Right eye injected and red. Watering. Upper and lower lids are unremarkable. No swelling. No proptosis. Injected. No obvious foreign body. Pupil round reactive light. Extra motions are intact. No preauricular lymphadenopathy. No facial swelling. No orbital swelling. Left eye unremarkable. Neck no lymphadenopathy, supple and no JVD General: Negative for tenderness Resp normal respiratory effort, no retractions, no use of accessory muscles and clear to auscultation bilaterally Cardio regular rate, regular rhythm, S1 normal heart sound, S2 normal heart sound and no murmurs GI non-tender, non-distended and no masses Palpation: soft Extremity normal to inspection General Extremety ED: Negative for edema General Extremity: Negative for edema Neuro oriented x3, CN's II-XII intact bilaterally and moves all extremities Sensorium / Orientation: alert, oriented to person, oriented to place and oriented to time; Negative for orientation impaired Motor Exam: strength 5/5 throughout; Negative for general weakness or strength abnormal Psych Appearance: Negative for unkempt Attitude: No agitated Mood & Affect: Negative for depressed, anxious or tearful Skin no wounds Lesions: no lesions Rashes: no rashes Trauma: Negative for abrasion, laceration or puncture MDM MDM MDM Narrative Medical decision making narrative: 32-year-old with right eye discomfort and watering. Most likely secondary to either infection, ulcer or irritation from her contacts. It does not look like a bacterial infection at least is not that type of discharge. Tetracaine will be instilled in the right eye and a fluorescein stain slit-lamp exam. Tetracaine was instilled in the right eye which gave her some relief. Then fluorescein. I did a slit-lamp exam. The right eye is red. It is injected. There is watering. There is no discharge. Upper and lower lids are unremarkable. There are 2 areas at about 11 and 1:00 above her iris at the top of her eye that look like either hypopyon or corneal ulcers. I discussed this with the patient and her . I also discussed with ophthalmology on-call Dr. Humberto Reza. Patient be started on moxifloxacin eyedrops. And she will see the timing adjuster tomorrow in their office. Motrin and Tylenol for pain. Keep her contacts out. Tetracaine for pain just today. History & Record Review Discussion w/independent historian: Patient and Family Discharge Plan Triage Chief Complaint: Eye Problem ED Provider: Aron Rahman Dx/Rx/DC Orders Clinical Impression: Corneal ulcer Instructions: ED Corneal Ulcer Prescriptions: New moxifloxacin [Vigamox] 0.5 % drops 1 drp RIGHT EYE .Every hour 7 Days Qty: 3 0RF Rx Instructions: Apply 1 drop to your right eye every hour while awake. No Action omeprazole 40 mg capsule,delayed release(DR/EC) 40 mg PO DAILY Qty: 30 1RF famotidine 20 mg tablet 20 mg PO BID Qty: 60 0RF multivitamin with minerals 1 EACH tablet 1 ea PO DAILY metoclopramide HCl 5 MG tablet 5 mg PO PRN PRN (Reason: Nausea) Primary Care Provider: Robert Wong ALEMITE OPERATOR Referrals: Humberto Reza MD [Med Staff - Active Staff] - 1 Day (Call with your ophthalmology office tomorrow morning at 8 AM. They will work you in for appointment tomorrow morning.) Robert Wong ALEMITE OPERATOR, ALEMITE OPERATOR-C [Primary Care Provider] - Activity Restrictions/Additional Instructions: Motrin and Tylenol for pain. Sunglasses to prevent glare if the lights bothering your eyes. Moxifloxacin eyedrop 1 drop to your right eye every hour while awake. Tetracaine for pain today. After midnight tonight stop using it because it can retard healing. Call the eye doctor's office tomorrow morning at 8 AM. They will work you in to get an appointment set up for you most likely tomorrow morning. Keep your contacts out for the foreseeable future. The eye doctor will tell you when you can restart them. Disposition Disposition: Home, Self Care
[2023-04-16] MEDS: Tetracaine 0.5% Ophthalmic Bottle 1 DRP RIGHT EYE (12:55)
[2023-04-16] MEDS: Fluorescein 1 MG STRIP 1 STRIP RIGHT EYE (12:55)
== END 2023-04-16 14:45 | disposition home or self-care (01) ==
PROVIDERS: Emergency Provider Emergency Medicine; PCP Nurse Practitioner Family; Visit Provider Emergency Medicine
DX: H16.011 Central corneal ulcer, right eye (principal); X58.XXXA Exposure to other specified factors, initial encounter; Z97.3 Presence of spectacles and contact lenses
CPT/HCPCS: 99283

== ENCOUNTER → 2023-04-17 | Outpatient (CLI) | payer MEDICAID, SELFPAY ==
--- NOTE | 2023-04-17 10:48 | RAD_ITS ---
STUDY: X-RAY - ABDOMEN/PELVIS REASON FOR EXAM: Female, 32 years old. Sitz marker TECHNIQUE: Single AP view of the abdomen / pelvis. COMPARISON: 04/15/2023 FINDINGS: Normal visualized lung bases. There is an unremarkable bowel gas pattern. The visualized liver, spleen and kidneys are grossly normal in size and morphology. Normal soft tissue structures. Normal visualized osseous structures. Next This radiograph was obtained 5 days after the administration of Sitzmarks radiopaque markers. 6 markers remain with one near the hepatic flexure, one near the splenic flexure, and 4 in the sigmoid. Findings may represent a colonic hypomotility. Repeat study after the administration of a bulking agent for 2 weeks may be useful. RAD/Abdomen Single View IMPRESSION: Suspect delayed colonic transit and repeat study after the administration of bulking agent for 2 weeks may be useful. Electronically Signed: Robert Boles MD at 9:57 EDT ,
== END | disposition home or self-care (01) ==
LOC: RAD 10:28
PROVIDERS: PCP Nurse Practitioner Family; Referring Provider Internal Medicine Gastroenterology; Visit Provider Internal Medicine Gastroenterology
DX: K59.00 Constipation, unspecified (principal)
CPT/HCPCS: 74018

== ENCOUNTER → 2023-05-16 | Outpatient (CLI) | payer MEDICAID, SELFPAY ==
[2023-05-16 16:28] LABS: Absolute Lymphocyte Count 2.63 X10^3/uL (0.83-4.51); Absolute Neutrophil Count 3.9 X10^3/uL (2.0-7.7); Basophil# 0.04 X10^3/uL; Basophil% 0.6 % (0-1); Eosinophil# 0.04 X10^3/uL; Eosinophils% 0.6 % (0-5); Hematocrit 39.6 % (37-47); Hemoglobin 13.1 g/dL (12.0-15.0); Lymphocyte # 2.63 X10^3/ul (0.83-4.51); Lymphocyte % 37.3 % (19-41); Mean Corp Hgb Conc 33.1 g/dL (32-36); Mean Corpuscular Hgb 30.3 pg (27.0-32.0); Mean Corpuscular Volume 91.7 fL (81-99); Mean Platelet Vol. 10.5 fl (6.2-12.0); Monocyte# 0.38 X10^3/uL; Monocyte% 5.4 % (0-10); NRBC Flagged by Analyzer 0 % (0-5); Neutrophil # 3.94 X10^3/uL (2.7-7.7); Neutrophil % 55.8 % (47-70); Platelet Count 241 K/mm3 (150-450); RBC Distribution Width CV 12.3 % (11.6-14.6); RBC Distribution Width SD 41.3 fl (35.1-43.9); Red Blood Count 4.32 M/mm3 (4.2-5.4); White Blood Count 7.1 K/mm3 (4.4-11.0)
[2023-05-16 16:55] LABS: Estradiol 77.5 pg/mL; Prolactin 8.6 ng/mL; T4 Free Direct 0.94 ng/dL (0.76-1.46); Thyroid Stim Hormone (TSH) 1.54 uIU/mL (0.358-3.74)
== END | disposition home or self-care (01) ==
LOC: WOBLAB 15:43
PROVIDERS: PCP Nurse Practitioner Family; Visit Provider Nurse Practitioner Women's Health
DX: N97.9 Female infertility, unspecified (principal)
CPT/HCPCS: 36415; 82670; 83001; 83002; 84146; 84439; 84443; 85025

== ENCOUNTER → 2024-04-11 | Outpatient (CLI) | payer MEDICAID, SELFPAY ==
[2024-04-11 10:34] LABS: Hematocrit 39.7 % (37-47); Hemoglobin 13.2 g/dL (12.0-15.0); Mean Corp Hgb Conc 33.2 g/dL (32-36); Mean Corpuscular Volume 90.2 fL (81-99); Mean Platelet Vol. 10.9 fl (6.2-12.0); Platelet Count 209 K/mm3 (150-450); RBC Distribution Width SD 39.7 fl (35.1-43.9); White Blood Count 4.4 K/mm3 (4.4-11.0)
[2024-04-11 11:10] LABS: Vitamin B12 975 pg/mL (211-911); Vitamin D,25 Hydroxy 40.7 ng/mL
[2024-04-11 11:14] LABS: ALB/GLOB Ratio 1.3 RATIO (0.9-2.4); AST(SGOT) 21 U/L (15-37); Alanine Aminotransfer ALT/SGPT 21 U/L (13-56); Albumin, Serum 3.7 g/dL (3.2-5.0); Alkaline Phosphatase 61 U/L (45-117); Anion Gap 4 (5-15); BUN 6 mg/dL (7-18); BUN/Creat Ratio 5.7 RATIO (10-20); Calcium,Total 9.1 mg/dL (8.5-10.1); Chloride 109 mmol/L (98-107); Cholesterol 140 mg/dL (200); Creatinine, Serum 1.06 mg/dL (0.55-1.02); EST Glomerular Filtration Rate 64 mL/min (>60); Est Glom Filt Rate - Afr Amer 77 mL/min (>60); Globulin 2.9 g/dL (2.2-4.2); Glucose 92 mg/dL (74-106); High Density Lipoprotein 49 mg/dL; Iron 73 ug/dL (50-170); Potassium 4.4 mmol/L (3.5-5.1); Protein, Total 6.6 g/dL (6.4-8.2); Sodium Level 142 mmol/L (136-145); Thyroid Stim Hormone (TSH) 0.91 uIU/mL (0.358-3.74); Triglycerides 34 mg/dL; Very Low Density Lipoprotein 7 mg/dL (5-40)
== END | disposition home or self-care (01) ==
LOC: LAB 09:52
PROVIDERS: PCP Nurse Practitioner Family; Referring Provider Nurse Practitioner Family; Visit Provider Nurse Practitioner Family
DX: Z00.00 Encounter for general adult medical examination without abnormal findings (principal); R20.2 Paresthesia of skin; E55.9 Vitamin D deficiency, unspecified
CPT/HCPCS: 36415; 80053; 80061; 82306; 82607; 83036; 83540; 84443; 85027

== ENCOUNTER → 2024-05-07 | Outpatient (CLI) | payer MEDICAID, SELFPAY ==
[2024-05-07 11:08] LABS: Erythrocyte Sedimentation Rate < 1 mm/hr (0-30)
[2024-05-07 12:05] LABS: CPK Total, Creatine Kinase 49 U/L (26-192); CRP < 2.90 mg/L (0.0-3.0); Rheumatoid Factor < 10.0 IU/mL (<15)
[2024-05-08 14:10] LABS: Anti-Centromere B Ab <0.2 AI (0.0-0.9); Anti-Chromatin <0.2 AI (0.0-0.9); Anti-Jo <0.2 AI (0.0-0.9); Anti-Scleroderma-70 AB <0.2 AI (0.0-0.9); Anti-dsDNA Ab <1 IU/mL (0-9); RNP Ab 0.2 AI (0.0-0.9); SJOGREN'S Anti-SS-A test < 0.2 AI (0.0-0.9); SJOGREN'S Anti-SS-B test < 0.2 AI (0.0-0.9); Smith Ab <0.2 AI (0.0-0.9)
[2024-05-08 17:08] LABS: Aldolase 3.1 U/L (3.3-10.3); Deamidated Gliadin IgA 6 units (0-19); Deamidated Gliadin IgG 3 units (0-19); Endomysial Antibody IgA Negative (Negative); Immunoglobulin A 112 mg/dL (87-352); t-Transglutaminase IgA <2 U/mL (0-3)
== END | disposition home or self-care (01) ==
LOC: LAB 10:11
PROVIDERS: PCP Nurse Practitioner Family; Referring Provider Internal Medicine Gastroenterology; Visit Provider Internal Medicine Gastroenterology
DX: M53.3 Sacrococcygeal disorders, not elsewhere classified (principal)
CPT/HCPCS: 36415; 82085; 82550; 82784; 83516; 85652; 86140; 86225; 86235; 86255; 86431

== ENCOUNTER → 2024-09-26 | Outpatient (CLI) | payer MEDICAID, SELFPAY ==
--- NOTE | 2024-09-26 11:47 | RAD_ITS ---
EXAM: XR CHEST, 2 VIEWS CLINICAL INDICATION: SOB,NEAR SYNCOPE/PULM HTN TECHNIQUE: Frontal and lateral views of the chest. COMPARISON: No relevant prior studies available. FINDINGS: LUNGS AND PLEURAL SPACES: Unremarkable. No consolidation or edema. No pneumothorax. No effusion. HEART: Unremarkable. Cardiac silhouette not enlarged. MEDIASTINUM: Central airways and mediastinal contour are unremarkable. BONES/JOINTS: Unremarkable. No acute fracture. SOFT TISSUES: Unremarkable. RAD/Chest PA and Lateral IMPRESSION: No radiographic evidence of acute cardiopulmonary disease. Electronically Signed: Luis Eduardo Nieves MD at 1:46 EST ,
--- NOTE | 2024-09-26 11:50 | ECHOD_ITS ---
Reason For Study: SOB, NEAR SYNCOPE, PHTN Procedure This was a 2D Doppler, Color Flow transthoracic echocardiogram. Exam performed in department. Left Ventricle Normal LV size. The estimated ejection fraction is 65 %. No evidence for diastolic dysfunction. No regional wall motion abnormalities noted. Right Ventricle Normal RV size. Normal systolic function. Atria The left and right atria are normal. No doppler evidence for ASD. Mitral Valve There is no mitral valve stenosis. No mitral valve insufficiency. Tricuspid Valve There is no tricuspid stenosis. Trivial tricuspid valve insufficiency. Pulmonary artery systolic pressure is 25 mmHg. Aortic Valve Trisinus/trileaflet aortic valve. There is no aortic stenosis. No aortic valve insufficiency. Pulmonic Valve There is no pulmonic valvular stenosis. No pulmonic valve insufficiency. Great Vessels Normal aortic root. Pericardium/Pleural No pericardial effusion. MMode/2D Measurements & Calculations LVIDd: 4.4 cm IVSd: 0.72 cm LVOT diam: 2.0 cm LVIDs: 2.3 cm LVPWd: 0.67 cm LVOT area: 3.1 cm2 RVDd: 2.9 cm FS: 48.6 % asc Aorta Diam: 2.5 cm LAV(MOD-bp): 35.3 ml LVAd ap4: 21.9 cm2 LAV(MOD-bp) Indexed: 20.6 ml/m2 LVLd ap4: 7.5 cm LAV(MOD-sp2): 31.1 ml EDV(MOD-sp4): 52.2 ml LAV(MOD-sp4): 36.5 ml EDV(sp4-el): 54.2 ml LVAs ap4: 10.9 cm2 LVLs ap4: 6.0 cm ESV(MOD-sp4): 16.7 ml ESV(sp4-el): 16.8 ml EF(MOD-sp4): 68.1 % EF(sp4-el): 69.1 % LVAd ap2: 23.0 cm2 SV(MOD-sp4): 35.5 ml SV(MOD-sp2): 40.2 ml LVLd ap2: 7.7 cm SI(MOD-sp4): 20.7 ml/m2 SI(MOD-sp2): 23.4 ml/m2 EDV(MOD-sp2): 55.9 ml EDV(sp2-el): 58.6 ml LVAs ap2: 10.6 cm2 LVLs ap2: 6.3 cm ESV(MOD-sp2): 15.7 ml ESV(sp2-el): 15.1 ml EF(MOD-sp2): 71.9 % SV(sp4-el): 37.5 ml Ao sinus diam: 2.[address] Junction: 2.1 cm LA dimension(2D): 2.8 cm LA A4 area: 15.6 cm2 RA A4 area: 10.1 cm2 TAPSE: 2.5 cm Time Measurements MV dec time: 0.17 sec Doppler Measurements & Calculations MV E max lam: 107.7 cm/sec Lat Peak E' Lam: 18.9 cm/sec Med Peak E' Lam: 15.3 cm/sec MV A max lam: 58.5 cm/sec E/E' lat: 5.7 E/E' med: 7.0 MV E/A: 1.8 MV dec slope: 639.0 cm/sec2 Ao V2 max: 133.0 cm/sec LV V1 max: 117.7 cm/sec Ao max P.1 mmHg LV V1 max P.5 mmHg Ao V2 mean: 90.8 cm/sec LV V1 mean P.2 mmHg Ao mean P.7 mmHg LV V1 mean: 85.6 cm/sec Ao V2 VTI: 27.7 cm LV V1 VTI: 26.4 cm AV (velocity ratio): 0.95 KATHY(I,D): 2.9 cm2 KATHY(V,D): 2.7 cm2 SV(LVOT): 80.9 ml PA V2 max: 91.2 cm/sec TR max lam: 235.5 cm/sec TR max P.2 mmHg ECHO/Echo Complete Interpretation Summary The estimated ejection fraction is 65 %. No evidence for diastolic dysfunction. Ordering Physician: Robert Wong Referring Physician: Robert Wong Performed By: Aniya Lara RDCS
[2024-09-26 12:07] LABS: Hematocrit 38.4 % (37-47); Hemoglobin 12.7 g/dL (12.0-15.0); Mean Corp Hgb Conc 33.1 g/dL (32-36); Mean Corpuscular Hgb 30.5 pg (27.0-32.0); Mean Corpuscular Volume 92.1 fL (81-99); Mean Platelet Vol. 10.3 fl (6.2-12.0); Platelet Count 187 K/mm3 (150-450); RBC Distribution Width SD 40.6 fl (35.1-43.9); Red Blood Count 4.17 M/mm3 (4.2-5.4)
[2024-09-26 12:39] LABS: Vitamin D,25 Hydroxy 28.8 ng/mL
[2024-09-26 12:49] LABS: ALB/GLOB Ratio 1.2 RATIO (0.9-2.4); AST(SGOT) 14 U/L (15-37); Alanine Aminotransfer ALT/SGPT 19 U/L (13-56); Albumin, Serum 3.6 g/dL (3.2-5.0); Alkaline Phosphatase 53 U/L (45-117); Anion Gap 2 (5-15); BUN 8 mg/dL (7-18); BUN/Creat Ratio 7.4 RATIO (10-20); Calcium,Total 9.2 mg/dL (8.5-10.1); Chloride 112 mmol/L (98-107); Creatinine, Serum 1.08 mg/dL (0.55-1.02); EST Glomerular Filtration Rate 62 mL/min (>60); Est Glom Filt Rate - Afr Amer 76 mL/min (>60); Globulin 2.9 g/dL (2.2-4.2); Glucose 94 mg/dL (74-106); Magnesium 1.8 mg/dL (1.6-2.6); Potassium 4.2 mmol/L (3.5-5.1); Protein, Total 6.5 g/dL (6.4-8.2); Sodium Level 142 mmol/L (136-145); Thyroid Stim Hormone (TSH) 0.561 uIU/mL (0.358-3.740)
[2024-09-30 09:22] LABS: Anti-Nuclear Antibody Test Negative (.)
== END | disposition home or self-care (01) ==
PROVIDERS: PCP Nurse Practitioner Family; Referring Provider Nurse Practitioner Family; Visit Provider Nurse Practitioner Family
DX: R06.02 Shortness of breath (principal); I27.20 Pulmonary hypertension, unspecified; R55 Syncope and collapse
CPT/HCPCS: 36415; 71046; 80053; 82306; 83735; 84443; 85027; 86038; 93306; 94060; 94726; 94729

== ENCOUNTER → 2025-01-01 | Outpatient (CLI) | payer MEDICAID, SELFPAY ==
--- NOTE | 2025-01-01 18:18 | STRESSREP ---
Stress Test Report Exercise stress test. 34-year-old lady with a history of chest pain Stress protocol: Resting EKG demonstrates normal sinus rhythm with a rate of 65 bpm resting blood pressure is 102/60 mmHg. The patient exercised according to the regular Sam protocol for a total duration of 6 minutes attaining a maximum heart rate of 160 bpm which was 85% of maximum predicted heart rate; the maximum workload was 7 metabolic equivalents. At rest there were no ST or T wave changes noted to suggest ischemia and at peak exercise upsloping ST changes only were noted which did not meet the criteria for ischemia. No clinical angina was noted the test was terminated due to the target heart rate being achieved/fatigue. The peak blood pressure was 144/70 mmHg. Rate-pressure product was 22,600. Conclusion: Stress test with no EKG criteria for ischemia at a moderate workload.
== END | disposition home or self-care (01) ==
LOC: CVS 10:43
PROVIDERS: PCP Nurse Practitioner Family; Referring Provider Internal Medicine Cardiovascular Disease; Visit Provider Internal Medicine Cardiovascular Disease
DX: I48.91 Unspecified atrial fibrillation (principal); I48.92 Unspecified atrial flutter
CPT/HCPCS: 93017

== ENCOUNTER → 2025-01-14 | Outpatient (CLI) | payer MEDICAID, SELFPAY ==
[2025-01-14 09:39] LABS: Absolute Lymphocyte Count 1.94 X10^3/uL (0.83-4.51); Absolute Neutrophil Count 2.7 X10^3/uL (2.0-7.7); Basophil# 0.03 X10^3/uL; Basophil% 0.6 % (0-1); Eosinophil# 0.05 X10^3/uL; Hematocrit 40.4 % (37-47); Hemoglobin 13.8 g/dL (12.0-15.0); Lymphocyte # 1.94 X10^3/ul (0.83-4.51); Lymphocyte % 38.2 % (19-41); Mean Corp Hgb Conc 34.2 g/dL (32-36); Mean Corpuscular Hgb 30.7 pg (27.0-32.0); Mean Corpuscular Volume 89.8 fL (81-99); Mean Platelet Vol. 10.1 fl (6.2-12.0); Monocyte# 0.36 X10^3/uL; Monocyte% 7.1 % (0-10); NRBC Flagged by Analyzer 0 % (0-5); Neutrophil # 2.69 X10^3/uL (2.7-7.7); Neutrophil % 52.9 % (47-70); Platelet Count 232 K/mm3 (150-450); RBC Distribution Width CV 12.1 % (11.6-14.6); RBC Distribution Width SD 39.8 fl (35.1-43.9); White Blood Count 5.1 K/mm3 (4.4-11.0)
[2025-01-14 10:10] LABS: Internal QC Validated? YES +Cl - CLEAR BKGD
[2025-01-14 10:11] LABS: Pregnancy, Serum, hCG Quali. NEGATIVE Negative; Record Kit Lot#, Serum Preg. 899023
[2025-01-14 10:15] LABS: Anion Gap 10 (5-15); BUN 9 mg/dL (4-19); BUN/Creat Ratio 8.2 RATIO (10-20); Calcium,Total 9.3 mg/dL (7.6-11.0); Carbon Dioxide 25.4 mmol/L (21.0-32.0); Chloride 106 mmol/L (98-108); Creatinine, Serum 1.07 mg/dL (0.70-1.20); EST Glomerular Filtration Rate 71 (>60); Glucose 105 mg/dL (70-99); Potassium 4.2 mmol/L (3.3-5.1); Sodium Level 141 mmol/L (133-145)
--- NOTE | 2025-01-14 11:52 | PCM.TILTTABL ---
Staff Staff: Nicole Durand and Angely Muñoz Summary Pre Test Resting HR: 62 Pre Test Resting BP: 105/85 Minimum Test HR: 48 Maximum Test HR: 110 Minimum Test BP: 102/82 Maximum Test BP: 116/69 Reason for Test Termination: Reached Maximum Test Time Physician Tilt Table Report Patient's Physicians Primary Care Physician: Robert Wong NP Indications/Diagnosis: Syncope Procedure Comments: The patient was brought to the noninvasive lab in the postabsorptive nonsedated state. Informed consent was obtained. Initial EKG was performed as well as blood pressure. The initial heart rate was 62 bpm in sinus rhythm with a blood pressure 105/85 mmHg. The patient was placed in the 70 degree head upright tilt position. Patient was maintained in this position for 30 minutes with continuous EKG monitoring blood pressure measurements. No significant changes in blood pressure or EKG notation were present. The patient was then put back in the recumbent position and blood pressure and heart rate responses were also obtained. Summary: Negative head upright tilt table test.
[2025-01-14 11:55] VITALS: BP 102/82; BP 105/85; BP 116/69
== END | disposition home or self-care (01) ==
LOC: CVS 09:03
PROVIDERS: PCP Nurse Practitioner Family; Referring Provider Internal Medicine Cardiovascular Disease; Visit Provider Internal Medicine Cardiovascular Disease
DX: Z01.818 Encounter for other preprocedural examination (principal); R55 Syncope and collapse; R00.1 Bradycardia, unspecified; R53.83 Other fatigue; I95.9 Hypotension, unspecified; R00.2 Palpitations
CPT/HCPCS: 36415; 80048; 84703; 85025; 93660; A4216

== ENCOUNTER → 2025-04-28 | Outpatient (CLI) | payer MEDICAID, SELFPAY ==
[2025-04-28 11:27] LABS: Iron 68 ug/dL (50-170); Iron Binding Capacity,Total 328 ug/dL (250-450); Iron Binding Capacity,Unsat 260 ug/dL (228-428); Vitamin D,25 Hydroxy 31.1 ng/mL (30-100)
[2025-04-28 11:49] LABS: Hematocrit 38.6 % (37-47); Hemoglobin 12.8 g/dL (12.0-15.0); Mean Corp Hgb Conc 33.2 g/dL (32-36); Mean Corpuscular Volume 90.6 fL (81-99); Mean Platelet Vol. 10.5 fl (6.2-12.0); Platelet Count 196 K/mm3 (150-450); RBC Distribution Width CV 11.9 % (11.6-14.6); RBC Distribution Width SD 39.4 fl (35.1-43.9); Red Blood Count 4.26 M/mm3 (4.2-5.4); White Blood Count 5.4 K/mm3 (4.4-11.0)
== END | disposition home or self-care (01) ==
LOC: LAB 09:33
PROVIDERS: PCP Nurse Practitioner Family; Referring Provider Nurse Practitioner Family; Visit Provider Nurse Practitioner Family
DX: D50.9 Iron deficiency anemia, unspecified (principal); E55.9 Vitamin D deficiency, unspecified
CPT/HCPCS: 36415; 82306; 83540; 83550; 85027